=== PATIENT | male | born 1955 ===

== ENCOUNTER 2016-07-29 21:58 | Emergency (ER) | payer MEDICAID ==
[2016-07-29 21:59] VITALS: BMI 29.0
[2016-07-29 22:31] VITALS: BP 139/90; PULSE 98; RESP 16; TEMP 98.4; O2SAT 100
[2016-07-30] LABS: BASO # 0.1 K/uL (0.0-0.2); BASO % 1.1 % (0.0-2.0); EOS # 0.3 K/uL (0.0-0.7); EOS % 2.6 % (0.0-4.0); LYMPH # 3.4 K/uL (1.0-4.3); LYMPH % 29.4 % (20.0-40.0); MEAN CELL VOLUME 87.1 fl (80.0-94.0); MEAN CORPUSCULAR HGB CONC 33.3 g/dL (33.0-37.0); MEAN PLATELET VOLUME 9.1 fl (7.2-11.7); MONO # 0.8 K/uL (0.0-0.8); MONO % 7.3 % (0.0-10.0); NEUT # 6.9 K/uL (1.8-7.0); NEUT % 59.6 % (50.0-75.0); NRBC % 0.1 % (0.0-0.0); RED CELL DISTRIBUTION WIDTH 13.4 % (11.5-14.5); WHITE BLOOD COUNT 11.6 K/uL (4.8-10.8)
[2016-07-30 00:14] LABS: ALB/GLOB RATIO 1.5 (1.0-2.1); ALKALINE PHOSPHATASE 97 U/L (38-126); ALT/SGPT 41 U/L (21-72); AST/SGOT 28 U/L (17-59); BILIRUBIN,TOTAL 0.5 mg/dl (0.2-1.3); BLOOD UREA NITROGEN 18 mg/dl (9-20); CALCIUM 9.9 mg/dL (8.4-10.2); CARBON DIOXIDE 25 mmol/L (22-30); CHLORIDE 103 mmol/L (98-107); GFR AFRICAN-AMERICAN > 60; GLUCOSE,RANDOM 112 mg/dL (75-110); POTASSIUM 3.8 MMOL/L (3.6-5.0); SODIUM 141 mmol/l (132-148); TOTAL PROTEIN 8.4 G/DL (6.3-8.2)
--- NOTE | 2016-07-30 00:56 | US ---
EXAM: US Duplex Left Lower Extremity Veins CLINICAL HISTORY: 61 years old, male; Pain; Leg, lower; Left; Additional info: Possible dvt TECHNIQUE: Real-time ultrasound scan of the veins of the left lower extremity with color Doppler flow, spectral waveform analysis and compression. COMPARISON: US - DUPLEX LOWER EXTRM VEIN BILAT 04/27/2015 1:41:01 PM FINDINGS: Deep veins: Normal color and spectral Doppler flow. Normal compressibility. No deep vein thrombosis from common femoral to popliteal vein. Superficial veins: No thrombosis. Soft tissues: No popliteal cyst. IMPRESSION: 1. No evidence of DVT within LEFT lower extremity. 2. Incidental/non-acute findings are described above.
--- NOTE | 2016-07-30 01:07 | ED PDOC ---
Lower Extremity Pain/Injury Time Seen by Provider: 07/29/16 23:27 Chief Complaint (Nursing): Lower Extremity Problem/Injury Chief Complaint (Provider): LLE pain History Per: Patient History/Exam Limitations: no limitations Onset/Duration Of Symptoms: Days (1 week ) Current Symptoms Are (Timing): Still Present Additional Complaint(s): 61yo male with PMHx including diabetes, schizoaffective disorder, chronic back pain, spinal stenosis, and erectile dysfunction presents to the ED with c/o LLE pain x 1 week. Patient reports left foot pain worse when ambulating. Denies fever, redness to foot, calf pain, chest pain, or shortness of breath. Patient taking percocet with no relief. Past Medical History Reviewed: Historical Data, Nursing Documentation, Vital Signs Vital Signs: Last Vital Signs Temp 98.4 F 07/29/16 22:26 Pulse 98 H 07/29/16 22:26 Resp 16 07/29/16 22:26 BP 139/90 07/29/16 22:26 Pulse Ox 100 07/29/16 22:26 - Medical History PMH: Asthma (LAST ATTACK 02/04/2015), Diabetes, Deep Vein Thrombosis (To the RLE , not on blood thinners), HTN (Non complaint with medication), Hypercholesterolemia, Chronic Pain (back ) Denies: Depression, Chronic Kidney Disease Other PMH: schizoaffective disorder, spinal stenosis, erectile dysfunction - Surgical History Surgical History: Appendectomy Other surgeries: penile implant - Family History Family History: States: No Known Family Hx - Social History Current smoker - smoking cessation education provided: No Alcohol: None Drugs: Denies - Home Medications Home Medications: Ambulatory Orders Medication Instructions Recorded Acetaminophen/Oxycodone Hydr 1 tab PO Q4 09/06/13 [Percocet 325 mg-5 mg] Amlodipine Besylate/Benazepr 1 cap PO DAILY 09/06/13 [Lotrel 10 mg-20 mg] MetFORMIN [glucoPHAGE] 1,000 mg PO DAILY 09/06/13 Metoprolol Succinate [Metoprolol 1 tab PO DAILY 09/06/13 Succinate] Oxycodone HCl/Acetaminophen 1 tab PO Q6H PRN #15 tab 10/26/14 [Percocet 325 mg-5 mg] Ibuprofen [Motrin] 600 mg PO Q6H PRN #20 tab 10/26/15 MetFORMIN [glucoPHAGE] 1,000 mg PO DAILY #14 tab 10/26/15 Nystatin [Mycostatin Cream] 100,000 unit TP TID #1 tube 01/20/16 Gabapentin [Neurontin] 300 mg PO TID #25 cap 07/30/16 - Allergies Allergies/Adverse Reactions: Allergies Allergy/AdvReac Type Severity Reaction Status Date / Time No Known Allergies Allergy Verified 07/29/16 22:26 Review of Systems ROS Statement: Except As Marked, All Systems Reviewed And Found Negative Constitutional: Negative for: Fever Cardiovascular: Negative for: Chest Pain Respiratory: Negative for: Shortness of Breath Musculoskeletal: Positive for: Foot Pain (left ), Other (no calf pain ) Skin: Positive for: Other (no redness to left foot ) Physical Exam - Reviewed Nursing Documentation Reviewed: Yes Vital Signs Reviewed: Yes - Physical Exam Appears: Positive for: Well, No Acute Distress Head Exam: Positive for: ATRAUMATIC, NORMAL INSPECTION, NORMOCEPHALIC Skin: Positive for: Normal Color, Warm, Dry Eye Exam: Positive for: Normal appearance, EOMI, PERRL ENT: Positive for: Normal ENT Inspection Neck: Positive for: Normal, Painless ROM, Supple Cardiovascular/Chest: Positive for: Regular Rate, Rhythm. Negative for: Murmur , Tachycardia Respiratory: Positive for: Normal Breath Sounds. Negative for: Wheezing, Respiratory Distress Gastrointestinal/Abdominal: Positive for: Normal Exam, Soft. Negative for: Tenderness Back: Positive for: Normal Inspection. Negative for: L CVA Tenderness, R CVA Tenderness Extremity: Positive for: Normal ROM, Tenderness (mildly tender dorsum of left foot ), Swelling (trace edema to left foot ). Negative for: Deformity Neurologic/Psych: Positive for: Alert, Oriented. Negative for: Motor/Sensory Deficits - Laboratory Results Result Diagrams: 07/29/16 23:56 07/29/16 23:56 - ECG O2 Sat by Pulse Oximetry: 100 Pulse Ox Interpretation: Normal (RA) Medical Decision Making Medical Decision Makin: Impression: 61yo male w/ left foot pain in setting of diabetic disease Plan: CMP, CBC, d-dimer XR left foot accucheck US duplex LLE IVF Reassess 0056: US duplex LLE impression: 1. No evidence of DVT within LEFT lower extremity. 0210: XR left foot shows no acute disease. Labs reviewed, no clinically significant abnormalities. Patient was evaluated by podiatry resident who feels patient has vasculopathic and neuropathic pain. Patient can be discharged home and will f/u w/ pain management doctor and podiatry clinic. Dx: neuropathy stable Scribe Attestation: Documented by Jay Florez acting as a scribe for Joe Briones MD. Provider Scribe Attestation: All medical record entries made by the Scribe were at my direction and personally dictated by me. I have reviewed the chart and agree that the record accurately reflects my personal performance of the history, physical exam, medical decision making, and the department course for this patient. I have also personally directed, reviewed, and agree with the discharge instructions and disposition. Disposition - Clinical Impression Clinical Impression: Neuropathy - Patient ED Disposition Is Patient to be Admitted: No Counseled Patient/Family Regarding: Studies Performed, Diagnosis, Need For Followup - Disposition Referrals: Podiatry Clinic [Outside] Disposition: Routine/Home Disposition Time: 02:10 Condition: STABLE Additional Instructions: Please follow up with your body technician/painter in 2-3 days Prescriptions: Gabapentin [Neurontin] 300 mg PO TID #25 cap Instructions: Peripheral Neuropathy (ED)
--- NOTE | 2016-07-30 01:54 | CP.PCM.CON ---
History of Present Illness - History of Present Illness History of Present Illness: 61 year old male sent by PMD for evaluation of potential DVT on left foot as source for left foot and leg pain. 3 day of intermittent intense left foot pain , graded "9/10" localized to the top of the left foot. Pt reports pain is exacerbated by prolonged periods of standing. Pt denies recent inciting events. Pt sees a pain management physician for his long history of L4,L5,S1 disc herniation and spinal stenosis, and peripheral neuropathy. PMH: Diabetes 2 w/ neuropathy, HTN, Herniated discs, PSH: Appendectomy, Penile prosthesis, Partial thyroidectomy All: NKDA Social history: 03/12papck a day smoker witha 33 year long smoking history, quit 18 years ago. Denies alcohol use, History of cocaine and marijuana use 25+ years ago Meds: Percocet 10mg , Metformin 1000mg, Glipizide 2mg, Insulin, Past Patient History - Infectious Disease Hx of Infectious Diseases: None - Tetanus Immunizations Tetanus Immunization: Unknown - Past Medical History & Family History Past Medical History?: Yes - Past Social History Alcohol: None Drugs: Denies - CARDIAC Hx Hypercholesterolemia: Yes Hx Hypertension: Yes (Non complaint with medication) - PULMONARY Hx Asthma: Yes (LAST ATTACK 02/04/2015) - NEUROLOGICAL Hx Neurological Disorder: No - HEENT Hx HEENT Problems: No - RENAL Hx Chronic Kidney Disease: No - ENDOCRINE/METABOLIC Hx Endocrine Disorders: Yes Hx Diabetes Mellitus Type 2: Yes - HEMATOLOGICAL/ONCOLOGICAL Hx Blood Disorders: No - INTEGUMENTARY Hx Dermatological Problems: No - MUSCULOSKELETAL/RHEUMATOLOGICAL Hx Musculoskeletal Disorders: No - GASTROINTESTINAL Hx Gastrointestinal Disorders: No - GENITOURINARY/GYNECOLOGICAL Hx Genitourinary Disorders: No - PSYCHIATRIC Hx Depression: No - SURGICAL HISTORY Hx Appendectomy: Yes - ANESTHESIA Hx Anesthesia: Yes Hx Anesthesia Reactions: No Hx Malignant Hyperthermia: No Meds Home Medications: Home Medication List Medication Instructions Recorded Confirmed Type Gabapentin [Neurontin] 300 mg PO TID #25 cap 07/30/16 Rx Allergies/Adverse Reactions: Allergies Allergy/AdvReac Type Severity Reaction Status Date / Time No Known Allergies Allergy Verified 07/29/16 22:26 Physical Exam - Constitutional Appears: Well, Non-toxic, No Acute Distress - Extremities Exam Additional comments: Lower extremity focused. VASC: DP and PT pulses weakly palpable, 1/4. Left calf tenderness upon compression. Minor dorsal foot erythema absent swelling. Digits well perfused. DERM: Plantar acral skin shows xerosis. No hyperkeratotic lesions.No open wounds , lesion, or macerations bilaterally. Left leg shows diffuse patches of darkened xerotic skin. Nails are short, though dystrophic. NEURO: Protective sensation grossly diminished. (+) Tinnel signs along course of intermediate dorsal cutaneous nerve. - Neurological Exam Neurological exam: Alert, Oriented x3 - Psychiatric Exam Psychiatric exam: Normal Affect, Normal Mood Results - Vital Signs Recent Vital Signs: Last Vital Signs Temp 98.4 F 07/29/16 22:26 Pulse 98 H 07/29/16 22:26 Resp 16 07/29/16 22:26 BP 139/90 07/29/16 22:26 Pulse Ox 100 07/30/16 01:14 - Labs Result Diagrams: 07/29/16 23:56 07/29/16 23:56 Labs: Laboratory Results - last 24 hr 07/29/16 07/29/16 23:56 23:56 WBC 11.6 H D RBC 4.83 Hgb 14.0 Hct 42.0 MCV 87.1 MCH 29.0 MCHC 33.3 RDW 13.4 Plt Count 216 MPV 9.1 Neut % (Auto) 59.6 Lymph % (Auto) 29.4 [place] % (Auto) 7.3 Eos % (Auto) 2.6 Baso % (Auto) 1.1 Neut # 6.9 Lymph # 3.4 [place] # 0.8 Eos # 0.3 Baso # 0.1 Sodium 141 Potassium 3.8 Chloride 103 Carbon Dioxide 25 Anion Gap 17 BUN 18 Creatinine 0.9 Est GFR ( Amer) > 60 Est GFR (Non-Af Amer) > 60 Random Glucose 112 H Calcium 9.9 Total Bilirubin 0.5 AST 28 ALT 41 Alkaline Phosphatase 97 Total Protein 8.4 H Albumin 5.0 Globulin 3.4 Albumin/Globulin Ratio 1.5 Assessment & Plan - Assessment and Plan (Free Text) Assessment: 61 year old male with left foot dorsal intractable pain, secondary to neuropathy & underlying vasculopathy Plan: Pt was Seen & evaluated. Charts, labs, and vitals reviewed. Discussed with Dr. Plaza who endorsed the following plan. Venous Duplex negative for DVT X-rays: unremarkable fro acute trauma. Dorsal prominence of navicular head noted. No soft tissue swelling noted. Unremarkable Recommended return to pain management for optimization and addition of Gabapentin in pain control regimen. F/u in podiatry clinic prn - Date & Time Date: 07/30/16 Time: 02:00
--- NOTE | 2016-07-30 17:20 | RAD ---
PROCEDURE: Left Foot Radiographs. HISTORY: Pain. No history of recent/ related trauma provided COMPARISON: None. FINDINGS: BONES: No acute fracture. Small plantar calcaneal spur. JOINTS: Normal. SOFT TISSUES: Normal. OTHER FINDINGS: None. IMPRESSION: No acute findings related to/accounting for the clinical presentation.
--- NOTE | 2016-07-30 17:21 | RAD ---
PROCEDURE: Right Foot Radiographs. HISTORY: contralateral comparative film COMPARISON: None. FINDINGS: BONES: No acute fracture. Small plantar calcaneal spur. JOINTS: Minor hallux valgus deformity. SOFT TISSUES: Normal. OTHER FINDINGS: Vascular calcifications similar to those seen on the contralateral side. IMPRESSION: No acute findings related to/accounting for the clinical presentation.
== END 2016-07-30 02:20 | disposition home or self-care (01) ==
LOC: H.ER 21:58
DX: M79.672 Pain in left foot (principal); G62.9 Polyneuropathy, unspecified; E78.00 Pure hypercholesterolemia, unspecified; Z79.84 Long term (current) use of oral hypoglycemic drugs; Z86.718 Personal history of other venous thrombosis and embolism; J45.909 Unspecified asthma, uncomplicated; E11.9 Type 2 diabetes mellitus without complications

== ENCOUNTER 2016-10-02 12:03 | Emergency (ER) | payer MEDICAID ==
[2016-10-02 12:03] VITALS: BMI 29.0
[2016-10-02 12:36] VITALS: BP 157/97; PULSE 107; RESP 16; TEMP 97; O2SAT 100
--- NOTE | 2016-10-02 12:59 | ED PDOC ---
Lower Extremity Pain/Injury Time Seen by Provider: 10/02/16 12:53 Chief Complaint (Nursing): Lower Extremity Problem/Injury Chief Complaint (Provider): Left heel pain History Per: Patient History/Exam Limitations: no limitations Onset/Duration Of Symptoms: Days (x2) Current Symptoms Are (Timing): Still Present Additional Complaint(s): Michael Zaidi is a 61 year old male with previous medical history of diabetes, hypertension, chronic back pain and hypothyroidism who presents to the emergency department with a complaint of left heel pain ongoing for 2 days. Denied any injury/trauma or further complaints. Patient stated he took Percocet , prescribed from his pain management doctor, but felt no improvement. Patient has had intermittent heel pain for several months but states the pain got worse over the past couple of days. PMD: Derrick Ellis Jr., MD Past Medical History Reviewed: Historical Data, Nursing Documentation, Vital Signs Vital Signs: Last Vital Signs Temp 97.0 F L 10/02/16 12:32 Pulse 107 H 10/02/16 12:32 Resp 16 10/02/16 12:32 BP 157/97 H 10/02/16 12:32 Pulse Ox 100 10/02/16 12:32 - Medical History PMH: Asthma (bronchial asthma, LAST ATTACK 02/04/2015), Diabetes, Deep Vein Thrombosis (To the RLE, not on blood thinners), HTN (noncompliant with meds), Hypercholesterolemia, Hypothyroidism, Chronic Pain (back ) - Surgical History Surgical History: Appendectomy Other surgeries: Left partial thyroidectomy; Penis enlargement implant - Family History Family History: States: No Known Family Hx - Living Arrangements Living Arrangements: With Family - Social History Current smoker - smoking cessation education provided: Yes Alcohol: None Drugs: Denies - Home Medications Home Medications: Ambulatory Orders Medication Instructions Recorded Acetaminophen/Oxycodone Hydr 1 tab PO Q4 09/06/13 [Percocet 325 mg-5 mg] Amlodipine Besylate/Benazepr 1 cap PO DAILY 09/06/13 [Lotrel 10 mg-20 mg] MetFORMIN [glucoPHAGE] 1,000 mg PO DAILY 09/06/13 Metoprolol Succinate [Metoprolol 1 tab PO DAILY 09/06/13 Succinate] Oxycodone HCl/Acetaminophen 1 tab PO Q6H PRN #15 tab 10/26/14 [Percocet 325 mg-5 mg] Ibuprofen [Motrin] 600 mg PO Q6H PRN #20 tab 10/26/15 MetFORMIN [glucoPHAGE] 1,000 mg PO DAILY #14 tab 10/26/15 Nystatin [Mycostatin Cream] 100,000 unit TP TID #1 tube 01/20/16 Gabapentin [Neurontin] 300 mg PO TID #25 cap 07/30/16 Naproxen [Naprosyn] 500 mg PO BID #20 tab 10/02/16 - Allergies Allergies/Adverse Reactions: Allergies Allergy/AdvReac Type Severity Reaction Status Date / Time No Known Allergies Allergy Verified 10/02/16 12:32 Wells Criteria for PE - Wells Criteria for Pulmonary Embolism Clinical Signs and Symptoms of DVT: No P.E is #1 Diagnosis, or Equally Likely: No Heart Rate >100: No Immobilization at least 3 days;Surgery previous 4 weeks: No Previous, objectively diagnosed PE or DVT: No Hemoptysis: No Malignancy w/treatment within 6 months, or palliative: No Total Score: 0 Review of Systems ROS Statement: Except As Marked, All Systems Reviewed And Found Negative Musculoskeletal: Positive for: Foot Pain (left heel pain, denies trauma or injury) Physical Exam - Reviewed Nursing Documentation Reviewed: Yes Vital Signs Reviewed: Yes - Physical Exam Appears: Positive for: Well, Non-toxic, No Acute Distress Skin: Positive for: Normal Color. Negative for: Rash Extremity: Positive for: Tenderness (point tenderness to left heel), Swelling ( to left heel region), Other (no erythema or warmth to left heel region) Neurologic/Psych: Positive for: Alert, Oriented - ECG O2 Sat by Pulse Oximetry: 100 (RA) Pulse Ox Interpretation: Normal - Other Rad Left foot x-ray X-Ray: Interpreted by Me, Viewed By Me X-Ray Interpretation: no fx, no dis, heel spur Medical Decision Making Medical Decision Making: Initial Impression: Left heel pain Initial Plan: * Xray foot (left) * Motrin 600mg PO Patient aware of x-ray results. Patient states motrin helped the pain. See procedure note. Crutches given. Patient was referred to podiatry clinic in 2- 3 days. Scribe Attestation: Documented by Bernadette Rhodes, acting as a scribe for Nadiya Hobson PA-C. Provider Scribe Attestation: All medical record entries made by the Scribe were at my direction and personally dictated by me. I have reviewed the chart and agree that the record accurately reflects my personal performance of the history, physical exam, medical decision making, and the department course for this patient. I have also personally directed, reviewed, and agree with the discharge instructions and disposition. Procedures - Splinting Location: Left foot Pre-Made Type: ally wrap, ortho shoe Pre-Proc Neuro Vasc Exam: normal Post-Proc Neuro Vasc Exam: normal Disposition - Clinical Impression Clinical Impression: Heel spur - Patient ED Disposition Is Patient to be Admitted: No Counseled Patient/Family Regarding: Studies Performed, Diagnosis, Need For Followup, Rx Given - Disposition Referrals: Podiatry Clinic [Outside] Disposition: Routine/Home Disposition Time: 14:15 Condition: STABLE Additional Instructions: Ice and rest the affected area. Take prescription meds as directed as needed for pain. Follow-up in one to 2 days with podiatry clinic. Prescriptions: Naproxen [Naprosyn] 500 mg PO BID #20 tab Instructions: Heel Spur (ED), Crutch Instructions (ED) Forms: [employer] ([place]izean)
--- NOTE | 2016-10-02 14:07 | RAD ---
PROCEDURE: Left Foot Radiographs. HISTORY: heel pain COMPARISON: None. FINDINGS: BONES: No acute fracture. Plantar calcaneal spur noted. JOINTS: Normal. SOFT TISSUES: Vascular calcification. OTHER FINDINGS: None. IMPRESSION: Plantar calcaneal spur. No acute fracture.
== END 2016-10-02 15:03 | disposition home or self-care (01) ==
LOC: H.ER 12:03
DX: M77.32 Calcaneal spur, left foot (principal)

== ENCOUNTER 2017-02-16 10:32 | Emergency (ER) | payer MEDICAID ==
[2017-02-16 10:32] VITALS: BMI 26.3
[2017-02-16 10:41] VITALS: BP 149/80; PULSE 78; RESP 18; TEMP 97; O2SAT 98
== END 2017-02-16 11:20 | disposition left against medical advice (07) ==
LOC: H.ER 10:32
DX: Z02.89 Encounter for other administrative examinations (principal)

== ENCOUNTER 2017-09-22 18:04 | Inpatient (IN) | payer MEDICAID ==
[2017-09-22 18:04] VITALS: BMI 27.9
[2017-09-22] MEDS ORDERED: Piperacillin/Tazobact 3.375 GM in Sodium Chloride 0.9% 100 ML IV ONE (18:57)
[2017-09-22 19:15] LABS: VENOUS BLOOD GAS BASE EXCESS 2.8 mmol/L (0.0-2.0); VENOUS BLOOD GAS PCO2 40 mmHg (40-60); VENOUS BLOOD GAS PO2 30 mm/Hg (30-55); VENOUS BLOOD PH 7.44 (7.32-7.43)
[2017-09-22 19:16] LABS: BASO # 0.1 K/uL (0.0-0.2); BASO % 0.6 % (0.0-2.0); EOS # 0.1 K/uL (0.0-0.7); EOS % 0.3 % (0.0-4.0); HEMOGLOBIN 13.4 g/dL (12.0-18.0); LYMPH # 1.9 K/uL (1.0-4.3); LYMPH % 10.4 % (20.0-40.0); MEAN CORPUSCULAR HEMOGLOBIN 29.9 pg (27.0-31.0); MEAN CORPUSCULAR HGB CONC 34.3 g/dL (33.0-37.0); MEAN PLATELET VOLUME 9.8 fl (7.2-11.7); MONO # 1.8 K/uL (0.0-0.8); MONO % 9.7 % (0.0-10.0); NEUT # 14.7 K/uL (1.8-7.0); RBC 4.5 Mil/uL (4.40-5.90); RED CELL DISTRIBUTION WIDTH 13.4 % (11.5-14.5); WHITE BLOOD COUNT 18.6 K/uL (4.8-10.8)
[2017-09-22 19:29] LABS: ALB/GLOB RATIO 1.5 (1.0-2.1); ALBUMIN 4.5 g/dL (3.5-5.0); ALT/SGPT 42 U/L (21-72); AST/SGOT 27 U/L (17-59); BLOOD UREA NITROGEN 11 mg/dl (9-20); CALCIUM 9.3 mg/dL (8.4-10.2); GFR NON-AFRICAN AMERICAN > 60
[2017-09-22] MEDS ORDERED: Piperacillin/Tazobact 3.375 gm Inj IVPB ONE (19:33)
[2017-09-22 19:36] LABS: INR 1.1 (0.9-1.2); PARTIAL THROMBOPLASTIN TIME 29.3 Seconds (25.6-37.1); PROTHROMBIN TIME 12.2 Seconds (9.8-13.1)
--- NOTE | 2017-09-22 19:39 | ED PDOC ---
HPI: Male Pain Time Seen by Provider: 09/22/17 18:47 Chief Complaint (Nursing): Male Genitourinary Chief Complaint (Provider): Fever, back pain, dysuria History Per: Patient History/Exam Limitations: no limitations Onset/Duration Of Symptoms: Days Current Symptoms Are (Timing): Still Present Quality Of Discomfort: Dull (Back pain ) Additional Complaint(s): 62 yo male with HTN, DM and chronic back pain presents with back pain, fever and dysuria. Pt states the urinary frequency and dysuria began yesterday. PT takes percocet for back pain and states he thought back pain was related to that. Pt states his last percocet was at 3pm. Pt denies N/V/D Past Medical History Vital Signs: Last Vital Signs Temp 103 F H 09/22/17 18:30 Pulse 118 H 09/22/17 18:30 Resp 18 09/22/17 18:30 BP 130/79 09/22/17 18:30 Pulse Ox 99 09/22/17 18:30 - Medical History PMH: Anxiety, Arthritis, Asthma, Depression, Diabetes, Deep Vein Thrombosis (To the RLE, not on blood thinners), HTN, Hypercholesterolemia, Hypothyroidism, Kidney Stones, Chronic Kidney Disease, Chronic Pain (back ) - Surgical History Surgical History: Appendectomy, Endoscopy - Family History Family History: States: Unknown Family Hx - Home Medications Home Medications: Ambulatory Orders Medication Instructions Recorded Amlodipine Besylate/Benazepr 1 cap PO DAILY 09/06/13 [Lotrel 10 mg-20 mg] MetFORMIN [glucoPHAGE] 1,000 mg PO DAILY 09/06/13 Metoprolol Succinate [Metoprolol 1 tab PO DAILY 09/06/13 Succinate] Oxycodone HCl/Acetaminophen 1 tab PO Q6H PRN #15 tab 10/26/14 [Percocet 325 mg-5 mg] Gabapentin [Neurontin] 300 mg PO TID #25 cap 07/30/16 hydrALAZINE [Apresoline] 10 mg PO DAILY 02/26/17 traZODone [Desyrel] 100 mg PO DAILY 02/26/17 - Allergies Allergies/Adverse Reactions: Allergies Allergy/AdvReac Type Severity Reaction Status Date / Time No Known Allergies Allergy Verified 10/02/16 12:32 Physical Exam - Reviewed Nursing Documentation Reviewed: Yes Vital Signs Reviewed: Yes - Physical Exam Appears: Positive for: Well, Non-toxic, No Acute Distress Head Exam: Positive for: ATRAUMATIC, NORMAL INSPECTION, NORMOCEPHALIC Skin: Positive for: Normal Color, Warm, DRY Eye Exam: Positive for: Normal appearance ENT: Positive for: Normal ENT Inspection Neck: Positive for: Normal, Painless ROM Cardiovascular/Chest: Positive for: Regular Rate, Rhythm Respiratory: Positive for: Normal Breath Sounds. Negative for: Accessory Muscle Use Gastrointestinal/Abdominal: Positive for: Normal Exam, Soft. Negative for: Tenderness Male Genital Exam: Positive for: normal genitalia Back: Positive for: Normal Inspection Extremity: Positive for: Normal ROM Neurologic/Psych: Positive for: Alert, Oriented - Laboratory Results Result Diagrams: 09/22/17 19:05 09/22/17 19:05 - ECG O2 Sat by Pulse Oximetry: 99 Medical Decision Making Medical Decision Making: Elevated WBC Lactate normal. Discussed with Dr. Cotton for admission. Disposition - Clinical Impression Clinical Impression: Pyelonephritis - Patient ED Disposition Is Patient to be Admitted: Yes - Disposition Disposition Time: 20:01 Condition: STABLE Forms: [employer] (Malagasy)
[2017-09-22 20:09] LABS: URINE BACTERIA RARE (<OCC); URINE BILIRUBIN NEGATIVE (NEGATIVE); URINE BLOOD SMALL (NEGATIVE); URINE CLARITY SLIGHTY-CLOUDY (Clear); URINE COLOR STRAW (YELLOW); URINE GLUCOSE (UA) NEG (Normal); URINE LEUKOCYTE ESTERASE LARGE Leu/uL (Negative); URINE PROTEIN NEGATIVE (NEGATIVE); URINE UROBILINOGEN 0.2-1.0 mg/dL (0.2-1.0)
[2017-09-22] MEDS ORDERED: Oxycodone/Acetaminophen 5/325 mg Tab PO PRN (23:49)
[2017-09-23 06:42] LABS: BASO # 0.1 K/uL (0.0-0.2); BASO % 0.3 % (0.0-2.0); HEMOGLOBIN 13.2 g/dL (12.0-18.0); LYMPH # 1.7 K/uL (1.0-4.3); LYMPH % 8.3 % (20.0-40.0); MEAN CELL VOLUME 87.9 fl (80.0-94.0); MEAN CORPUSCULAR HEMOGLOBIN 29.9 pg (27.0-31.0); MEAN PLATELET VOLUME 9.9 fl (7.2-11.7); MONO # 2.3 K/uL (0.0-0.8); MONO % 10.9 % (0.0-10.0); NEUT # 16.9 K/uL (1.8-7.0); NEUT % 80.5 % (50.0-75.0); PLATELET COUNT 169 K/uL (130-400); RBC 4.42 Mil/uL (4.40-5.90); RED CELL DISTRIBUTION WIDTH 13.3 % (11.5-14.5)
[2017-09-23 07:31] LABS: ALB/GLOB RATIO 1.4 (1.0-2.1); ALBUMIN 3.9 g/dL (3.5-5.0); ALT/SGPT 46 U/L (21-72); AST/SGOT 33 U/L (17-59); BLOOD UREA NITROGEN 10 mg/dl (9-20); CALCIUM 9.3 mg/dL (8.4-10.2); GFR NON-AFRICAN AMERICAN > 60; HDL CHOLESTEROL 38 MG/DL (30-70)
[2017-09-23 07:33] LABS: LDL CHOLESTEROL 55 mg/dL (0-129)
[2017-09-23 07:35] LABS: T4 7.27 ug/dl (5.5-11.0)
[2017-09-23] MEDS: cefTRIAXone 2 GM in Sodium Chloride 0.9% 100 ML IVPB SCH (08:18)
[2017-09-23] MEDS: GlipiZIDE 5 mg SR Tab PO SCH (08:19)
[2017-09-23] MEDS: Metoprolol Succinate 100 mg XL Tab PO SCH (08:19)
[2017-09-23] MEDS ORDERED: METOPROLOL SUCCINATE PO SCH (09:00)
[2017-09-23] MEDS ORDERED: BENAZEPRIL PO SCH (09:00)
[2017-09-23] MEDS ORDERED: GLIMEPIRIDE 2 MG PO SCH (09:00)
[2017-09-23] MEDS ORDERED: AMLODIPINE BESYLATE PO SCH (09:00)
[2017-09-23 10:28] LABS: BANDS 4 % (0-2); LYMPHOCYTE 9 % (20-50); MONOCYTE 9 % (0-10); NEUTROPHIL 77 % (42-75); PLATELET ESTIMATE NORMAL (NORMAL); REACTIVE LYMPHOCYTES 1 % (0-0); TOTAL CELLS COUNTED 100
--- NOTE | 2017-09-23 11:14 | RAD ---
Date of service: 09/22/2017 HISTORY: Sepsis Patient COMPARISON: 04/27/2015. FINDINGS: LUNGS: No active pulmonary disease. PLEURA: No significant pleural effusion identified, no pneumothorax apparent. CARDIOVASCULAR: No radiographic findings to suggest acute or significant cardiovascular disease. OSSEOUS STRUCTURES: No significant abnormalities. VISUALIZED UPPER ABDOMEN: Normal. OTHER FINDINGS: None. IMPRESSION: No active disease. No significant interval change compared to the prior examination(s).
--- NOTE | 2017-09-23 15:31 | US ---
Date of service: 09/23/2017 PROCEDURE: Ultrasound of the Kidneys HISTORY: pyelonephritis COMPARISON: None available. TECHNIQUE: Sonogram of the kidneys. FINDINGS: RIGHT KIDNEY: Measures: 12.1 x 5.9 x 5.8 cm. Normal in size, contour and echogenicity. No stone, solid mass lesion or hydronephrosis visualized. A small right upper renal pole cyst measuring 7 x 7 x 6 mm in size is noted. LEFT KIDNEY: Measures: 12.8 x 5.1 x 6.1 cm. No stone, or hydronephrosis visualized. There is slight interval change appreciated in a partially exophytic left renal complex appearing cyst. Within the exophytic cystic compartment there may be a few small calcifications within it. Previously a left more intra renal parenchymal benign-appearing cysts with suggested. The findings are indeterminate consider triple phase contrast enhanced CT of the kidneys for further evaluation. No hydronephrosis noted. OTHER FINDINGS: None. IMPRESSION: slight interval change appreciated in a partially exophytic left renal complex appearing cyst. Within the exophytic cystic compartment there may be a few small calcifications within it. Previously a left more intra renal parenchymal benign-appearing cysts with suggested. The findings are indeterminate consider triple phase contrast enhanced CT of the kidneys for further evaluation. No hydronephrosis noted.
--- NOTE | 2017-09-23 15:39 | CP.PCM.HP ---
History of Present Illness - History of Present Illness History of Present Illness: 62 y/o male with PMHx of HTN, DM type 2, Chronic back pain, Penile implant presents to Ed complaining of left sided flank pain, associated with dysuria, vesical tenesmus, and fevers for one day. Patient reports that this is the first time he has left flank pain, associated with urinary symptoms, but reports a h/o kidney stones years ago. Denies chills, N/V, Cp, SOB, hematuria. Reports pain involving multiple joints bilaterally. States he has poor adherence to diabetic diet, and medications. Present on Admission - Present on Admission Any Indicators Present on Admission: Yes History of DVT/PE: Yes History of Uncontrolled Diabetes: No Urinary Catheter: No Decubitus Ulcer Present: No Review of Systems - Constitutional Constitutional: Fever - EENT Eyes: Other (no) Nose/Mouth/Throat: Other (no) - Cardiovascular Cardiovascular: Other (no) - Respiratory Respiratory: Other (no) - Gastrointestinal Gastrointestinal: Other (no) - Reproductive: Male Reproductive:Male: Sexual Dysfunction, Penile Implant - Musculoskeletal Musculoskeletal: Arthralgias - Integumentary Integumentary: Skin Ulcer (L foot) - Neurological Neurological: Other (no) - Psychiatric Psychiatric: Anxiety, Depression - Endocrine Endocrine: Other (no) - Hematologic/Lymphatic Hematologic: Other (no) Past Patient History - Infectious Disease Hx of Infectious Diseases: None - Tetanus Immunizations Tetanus Immunization: Unknown - Past Medical History & Family History Past Medical History?: Yes - Past Social History Smoking Status: Never Smoked Home Situation {Lives}: With Family - CARDIAC Hx Cardiac Disorders: Yes Hx Hypercholesterolemia: Yes Hx Hypertension: Yes - PULMONARY Hx Asthma: Yes - NEUROLOGICAL Hx Neurological Disorder: No - HEENT Hx HEENT Problems: No - RENAL Hx Chronic Kidney Disease: Yes Hx Dialysis: No Hx Kidney Stones: Yes - ENDOCRINE/METABOLIC Hx Endocrine Disorders: Yes Hx Diabetes Mellitus Type 2: Yes Hx Hypothyroidism: Yes - HEMATOLOGICAL/ONCOLOGICAL Hx Blood Disorders: Yes Other/Comment: DVT R. lower ext - INTEGUMENTARY Hx Dermatological Problems: No - MUSCULOSKELETAL/RHEUMATOLOGICAL Hx Musculoskeletal Disorders: Yes Hx Arthritis: Yes Hx Falls: No - GASTROINTESTINAL Hx Gastrointestinal Disorders: Yes Hx Hemorrhoids: Yes - GENITOURINARY/GYNECOLOGICAL Hx Genitourinary Disorders: Yes Other/Comment: Erectile dysfunction. Penile implant/pump - PSYCHIATRIC Hx Psychophysiologic Disorder: Yes Hx Anxiety: Yes Hx Depression: Yes Hx Substance Use: No - SURGICAL HISTORY Hx Appendectomy: Yes Other/Comment: Penile sx. Epidural - ANESTHESIA Hx Anesthesia: Yes Hx Anesthesia Reactions: No Hx Malignant Hyperthermia: No Meds Allergies/Adverse Reactions: Allergies Allergy/AdvReac Type Severity Reaction Status Date / Time No Known Allergies Allergy Verified 09/22/17 20:45 Physical Exam - Constitutional Appears: Non-toxic, No Acute Distress - Head Exam Head Exam: ATRAUMATIC, NORMOCEPHALIC - Eye Exam Eye Exam: Normal appearance. absent: Conjunctival injection - ENT Exam ENT Exam: Mucous Membranes Moist - Respiratory Exam Respiratory Exam: Clear to Auscultation Bilateral, NORMAL BREATHING PATTERN. absent: Rales, Rhonchi, Wheezes, Respiratory Distress - Cardiovascular Exam Cardiovascular Exam: REGULAR RHYTHM, +S1, +S2 - GI/Abdominal Exam GI & Abdominal Exam: Normal Bowel Sounds, Soft. absent: Guarding, Rebound, Rigid, Tenderness - Extremities Exam Extremities exam: Positive for: normal inspection. Negative for: calf tenderness, pedal edema - Back Exam Back exam: CVA tenderness (L). absent: CVA tenderness (R) - Neurological Exam Neurological exam: Alert, Oriented x3 Additional comments: no focal motor/sensory deficit - Psychiatric Exam Psychiatric exam: Normal Affect - Skin Skin Exam: Dry, Intact, Normal Color, Warm Results - Vital Signs Recent Vital Signs: Last Vital Signs Temp 101.9 F H 09/23/17 15:20 Pulse 97 H 09/23/17 10:18 Resp 20 09/23/17 10:18 BP 125/81 09/23/17 08:31 Pulse Ox 97 09/23/17 10:18 - Labs Result Diagrams: 09/25/17 05:55 09/25/17 05:55 Labs: Laboratory Results - last 24 hr 09/22/17 09/22/17 09/22/17 19:03 19:05 19:05 WBC 18.6 H D RBC 4.50 Hgb 13.4 Hct 39.1 MCV 87.0 MCH 29.9 MCHC 34.3 RDW 13.4 Plt Count 181 MPV 9.8 Neut % (Auto) 79.0 H Lymph % (Auto) 10.4 L [place] % (Auto) 9.7 Eos % (Auto) 0.3 Baso % (Auto) 0.6 Neut # (Auto) 14.7 H Lymph # (Auto) 1.9 [place] # (Auto) 1.8 H Eos # (Auto) 0.1 Baso # (Auto) 0.1 Neutrophils % (Manual) Band Neutrophils % Lymphocytes % (Manual) Reactive Lymphs % Monocytes % (Manual) Platelet Estimate RBC Morphology PT INR APTT pO2 30 VBG pH 7.44 H VBG pCO2 40 VBG HCO3 26.2 VBG Total CO2 28.4 H VBG O2 Sat (Calc) 69.2 H VBG Base Excess 2.8 H VBG Potassium 3.8 Sodium 131.0 L 134 Chloride 96.0 L 96 L Glucose 174 H Lactate 1.4 FiO2 21.0 Potassium 4.0 Carbon Dioxide 25 Anion Gap 17 BUN 11 Creatinine 0.9 Est GFR ( Amer) > 60 Est GFR (Non-Af Amer) > 60 Random Glucose 168 H Hemoglobin A1c Calcium 9.3 Phosphorus 2.9 Magnesium 1.4 L Total Bilirubin 1.0 AST 27 ALT 42 Alkaline Phosphatase 97 Troponin I < 0.0120 Total Protein 7.5 Albumin 4.5 Globulin 3.0 Albumin/Globulin Ratio 1.5 Triglycerides Cholesterol LDL Cholesterol Direct HDL Cholesterol Thyroxine (T4) TSH 3rd Generation Venous Blood Potassium 3.8 Urine Color Urine Clarity Urine pH Ur Specific [place] Urine Protein Urine Glucose (UA) Urine Ketones Urine Blood Urine Nitrate Urine Bilirubin Urine Urobilinogen Ur Leukocyte Esterase Urine RBC (Auto) Urine Microscopic WBC Urine Bacteria 09/22/17 09/22/17 09/23/17 19:05 19:40 05:55 WBC 21.0 H RBC 4.42 Hgb 13.2 Hct 38.9 MCV 87.9 MCH 29.9 MCHC 34.0 RDW 13.3 Plt Count 169 MPV 9.9 Neut % (Auto) 80.5 H Lymph % (Auto) 8.3 L [place] % (Auto) 10.9 H Eos % (Auto) 0.0 Baso % (Auto) 0.3 Neut # (Auto) 16.9 H Lymph # (Auto) 1.7 [place] # (Auto) 2.3 H Eos # (Auto) 0.0 Baso # (Auto) 0.1 Neutrophils % (Manual) 77 H Band Neutrophils % 4 H Lymphocytes % (Manual) 9 L Reactive Lymphs % 1 H Monocytes % (Manual) 9 Platelet Estimate Normal RBC Morphology Normal PT 12.2 INR 1.1 APTT 29.3 pO2 VBG pH VBG pCO2 VBG HCO3 VBG Total CO2 VBG O2 Sat (Calc) VBG Base Excess VBG Potassium Sodium Chloride Glucose Lactate FiO2 Potassium Carbon Dioxide Anion Gap BUN Creatinine Est GFR ( Amer) Est GFR (Non-Af Amer) Random Glucose Hemoglobin A1c Calcium Phosphorus Magnesium Total Bilirubin AST ALT Alkaline Phosphatase Troponin I Total Protein Albumin Globulin Albumin/Globulin Ratio Triglycerides Cholesterol LDL Cholesterol Direct HDL Cholesterol Thyroxine (T4) TSH 3rd Generation Venous Blood Potassium Urine Color Straw Urine Clarity Slighty-cloudy Urine pH 7.0 Ur Specific [place] < 1.005 Urine Protein Negative Urine Glucose (UA) Neg Urine Ketones Negative Urine Blood Small Urine Nitrate Negative Urine Bilirubin Negative Urine Urobilinogen 0.2-1.0 Ur Leukocyte Esterase Large Urine RBC (Auto) 3 Urine Microscopic WBC 108 H Urine Bacteria Rare 09/23/17 09/23/17 05:55 05:55 WBC RBC Hgb Hct MCV MCH MCHC RDW Plt Count MPV Neut % (Auto) Lymph % (Auto) [place] % (Auto) Eos % (Auto) Baso % (Auto) Neut # (Auto) Lymph # (Auto) [place] # (Auto) Eos # (Auto) Baso # (Auto) Neutrophils % (Manual) Band Neutrophils % Lymphocytes % (Manual) Reactive Lymphs % Monocytes % (Manual) Platelet Estimate RBC Morphology PT INR APTT pO2 VBG pH VBG pCO2 VBG HCO3 VBG Total CO2 VBG O2 Sat (Calc) VBG Base Excess VBG Potassium Sodium 136 Chloride 99 Glucose Lactate FiO2 Potassium 4.1 Carbon Dioxide 25 Anion Gap 16 BUN 10 Creatinine 0.9 Est GFR ( Amer) > 60 Est GFR (Non-Af Amer) > 60 Random Glucose 172 H Hemoglobin A1c 8.0 H Calcium 9.3 Phosphorus Magnesium Total Bilirubin 1.3 AST 33 ALT 46 Alkaline Phosphatase 100 Troponin I Total Protein 6.8 Albumin 3.9 Globulin 2.9 Albumin/Globulin Ratio 1.4 Triglycerides 127 Cholesterol 139 LDL Cholesterol Direct 55 HDL Cholesterol 38 Thyroxine (T4) 7.27 TSH 3rd Generation 0.67 Venous Blood Potassium Urine Color Urine Clarity Urine pH Ur Specific [place] Urine Protein Urine Glucose (UA) Urine Ketones Urine Blood Urine Nitrate Urine Bilirubin Urine Urobilinogen Ur Leukocyte Esterase Urine RBC (Auto) Urine Microscopic WBC Urine Bacteria Assessment & Plan (1) Pyelonephritis Status: Acute (2) Left flank tenderness Status: Acute (3) History of penile implant Status: Chronic (4) DM type 2 (diabetes mellitus, type 2) Status: Chronic (5) Chronic back pain Status: Chronic - Assessment and Plan (Free Text) Plan: MedSurg unit c/w Merren c/w tylenol for fever c/w pain control with toradol, Percocet f/u urine culture f/u renal US will send for Ct scan with Renal protocol will consider Urology consult is needed check PSA, EDMAR w/reflex ab, RA c/w diabetic control with diet, metformin, and Glipizide HgbA1C 8.0 encourage to lose weight, and lifestyles modifications c/w BP control with home medications - Date & Time Date: 09/23/17 Time: 10:40
[2017-09-23] MEDS: Insulin Regular 100 units/ml SC SCH ×2 (17:35→21:53)
[2017-09-23] MEDS ORDERED: cefTRIAXone 2 GM in Sodium Chloride 0.9% 100 ML IVPB SCH (23:52)
[2017-09-24] MEDS: Piperacillin/Tazobact 3.375 GM in Sodium Chloride 0.9% 100 ML IVPB SCH ×2 (05:48→10:23)
[2017-09-24 06:33] LABS: HEMOGLOBIN 12.7 g/dL (12.0-18.0); MEAN CELL VOLUME 88.2 fl (80.0-94.0); MEAN CORPUSCULAR HEMOGLOBIN 30.3 pg (27.0-31.0); MEAN CORPUSCULAR HGB CONC 34.4 g/dL (33.0-37.0); RBC 4.19 Mil/uL (4.40-5.90); RED CELL DISTRIBUTION WIDTH 13.7 % (11.5-14.5); WHITE BLOOD COUNT 23.7 K/uL (4.8-10.8)
[2017-09-24 06:40] LABS: BLOOD UREA NITROGEN 10 mg/dl (9-20); CALCIUM 9.4 mg/dL (8.4-10.2); GFR NON-AFRICAN AMERICAN > 60
[2017-09-24] MEDS: Insulin Regular 100 units/ml SC SCH ×4 (09:08→22:55)
[2017-09-24] MEDS: GlipiZIDE 5 mg SR Tab PO SCH (09:09)
[2017-09-24] MEDS: cefTRIAXone 2 GM in Sodium Chloride 0.9% 100 ML IVPB SCH (09:10)
[2017-09-24] MEDS: Metoprolol Succinate 100 mg XL Tab PO SCH (09:10)
[2017-09-24] MEDS ORDERED: Meropenem 500 MG in Sodium Chloride 0.9% 100 ML IVPB SCH (12:15)
--- NOTE | 2017-09-24 15:31 | CARD ---
APPROVED REPORT Date of service: 09/22/2017 EKG Measurement Heart [id number] <Conclusion> Sinus tachycardia Otherwise normal ECG
--- NOTE | 2017-09-24 15:57 | CP.PCM.PN ---
Subjective - Date & Time of Evaluation Date of Evaluation: 09/24/17 Time of Evaluation: 13:30 - Subjective Subjective: F/U Pyelonephritis Objective - Vital Signs/Intake and Output Vital Signs (last 24 hours): Temp Pulse Resp BP Pulse Ox 98.3 F 93 H 20 114/74 95 09/24/17 11:55 09/24/17 09:10 09/24/17 09:08 09/24/17 09:10 09/24/17 09:08 - Medications Medications: Current Medications Acetaminophen (Tylenol 325mg Tab) 650 mg PO Q4 PRN PRN Reason: Fever >100.4 F Last Admin: 09/24/17 04:29 Dose: 650 mg Alprazolam (Xanax) 1 mg PO HS PRN PRN Reason: Insomnia Last Admin: 09/23/17 22:44 Dose: 1 mg Amlodipine Besylate (Norvasc) 10 mg PO DAILY [facility] Last Admin: 09/24/17 09:09 Dose: 10 mg Glipizide (Glucotrol Xl) 5 mg PO BRK [facility] Last Admin: 09/24/17 09:09 Dose: 5 mg Meropenem 500 mg/ Sodium (Chloride) 100 mls @ 100 mls/hr IVPB Q8 CATALINO PRN Reason: Protocol Last Admin: 09/24/17 14:32 Dose: 100 mls/hr Insulin Human Regular (Humulin R) 0 units SC ACHS CATALINO PRN Reason: Protocol Last Admin: 09/24/17 12:59 Dose: Not Given Ketorolac Tromethamine (Toradol) 30 mg IVP Q6 PRN PRN Reason: Pain, moderate (4-7) Last Admin: 09/24/17 04:39 Dose: 30 mg Lisinopril (Zestril) 40 mg PO DAILY [facility] Last Admin: 09/24/17 09:09 Dose: 40 mg Metoprolol Succinate (Toprol Xl) 100 mg PO DAILY [facility] Last Admin: 09/24/17 09:10 Dose: 100 mg Ondansetron HCl (Zofran Inj) 4 mg IVP Q4 PRN PRN Reason: Nausea/Vomiting Oxycodone/Acetaminophen (Percocet 5/325 Mg Tab) 1 tab PO Q4 PRN PRN Reason: Pain, severe (8-10) Stop: 07/20/18 23:50 - Labs Labs: 09/24/17 05:30 09/24/17 05:30 PT 12.2 Seconds (9.8-13.1) 09/22/17 19:05 INR 1.1 (0.9-1.2) 09/22/17 19:05 APTT 29.3 Seconds (25.6-37.1) 09/22/17 19:05 - Constitutional Appears: No Acute Distress - Head Exam Head Exam: NORMAL INSPECTION - Eye Exam Eye Exam: PERRL - ENT Exam ENT Exam: Normal Exam - Neck Exam Neck Exam: Normal Inspection - Respiratory Exam Respiratory Exam: Clear to Ausculation Bilateral - Cardiovascular Exam Cardiovascular Exam: REGULAR RHYTHM, +S1, +S2 - GI/Abdominal Exam GI & Abdominal Exam: Soft, Normal Bowel Sounds. absent: Distended, Guarding, Tenderness, Rebound - Extremities Exam Extremities Exam: Normal Inspection - Back Exam Back Exam: CVA tenderness (L) - Neurological Exam Neurological Exam: Alert, Oriented x3 - Psychiatric Exam Psychiatric exam: Anxious - Skin Skin Exam: Normal Color, Warm Assessment and Plan (1) Pyelonephritis Status: Acute (2) History of penile implant Status: Chronic (3) DM type 2 (diabetes mellitus, type 2) Status: Chronic (4) Pain, joint, multiple sites Status: Chronic
--- NOTE | 2017-09-24 17:51 | CP.PCM.CON ---
History of Present Illness - History of Present Illness History of Present Illness: 62 yo male with HTN, DM and chronic back pain presents with back pain, fever and dysuria. Referred for ID eval of pyelonephritis- hx of nephrolithisis and penile implant but denies recent infections Pt states the urinary frequency and dysuria began yesterday. PT takes percocet for back pain and states he thought back pain was related to that. - Medical History PMH: Anxiety, Arthritis, Asthma, Depression, Diabetes, Deep Vein Thrombosis (To the RLE, not on blood thinners), HTN, Hypercholesterolemia, Hypothyroidism, Kidney Stones, Chronic Kidney Disease, Chronic Pain (back ) - Surgical History Surgical History: Appendectomy, Endoscopy, penile prosthesis - Family History Family History: States: Unknown Family Hx Review of Systems - Review of Systems All systems: reviewed and no additional remarkable complaints except - Constitutional Constitutional: As Per HPI - EENT Eyes: absent: As Per HPI, Blind Spots, Blurred Vision, Change in Vision, Decreased Night Vision, Diplopia, Discharge, Dry Eye, Exophthalmos, Floaters, Irritation, Itchy Eyes, Loss of Peripheral Vision, Pain, Photophobia, Requires Corrective Lenses, Sees Flashes, Spots in Vision, Tunnel Vision, Other Visual Disturbances, Loss of Vision, Other Ears: absent: As Per HPI, Decreased Hearing, Ear Discharge, Ear Pain, Tinnitus, Abnormal Hearing, Disequilibrium, Dizziness, Other Nose/Mouth/Throat: absent: As Per HPI, Epistaxis, Nasal Congestion, Nasal Discharge, Nasal Obstruction, Nasal Trauma, Nose Pain, Post Nasal Drip, Sinus Pain, Sinus Pressure, Bleeding Gums, Change in Voice, Dental Pain, Dry Mouth, Dysphagia, Halitosis, Hoarsness, Lip Swelling, Mouth Lesions, Mouth Pain, Odynophagia, Sore Throat, Throat Swelling, Tongue Swelling, Facial Pain, Neck Pain, Neck Mass, Other - Cardiovascular Cardiovascular: absent: As Per HPI, Acrocyanosis, Chest Pain, Chest Pain at Rest , Chest Pain with Activity, Claudication, Diaphoresis, Dyspnea, Dyspnea on Exertion, Edema, Irregular Heart Rhythm, Pain Radiating to Arm/Neck/Jaw, Leg Edema, Leg Ulcers, Lightheadedness, Orthopnea, Palpitations, Paroxysmal Nocturnal Dyspnea, Pedal Edema, Radiating Pain, Rapid Heart Rate, Slow Heart Rate, Syncope, Other - Respiratory Respiratory: absent: As Per HPI, Cough, Dyspnea, Hemoptysis, Dyspnea on Exertion , Wheezing, Snoring, Stridor, Pain on Inspiration, Chest Congestion, Excessive Mucous Production, Change in Mucous Color, Pain with Coughing, Other - Gastrointestinal Gastrointestinal: As Per HPI - Genitourinary Genitourinary: As Per HPI - Musculoskeletal Musculoskeletal: absent: As Per HPI, Abnormal Gait, Arthralgias, Atrophy, Back Pain, Deformity, Joint Swelling, Limited Range of Motion, Loss of Height, Muscle Cramps, Muscle Weakness, Myalgias, Neck Pain, Numbness, Radiating Pain into Limb, Stiffness, Tingling, Other - Integumentary Integumentary: absent: As Per HPI, Acne, Alopecia, Bleeding Lesions, Change in Hair, Change in Nails, Change in Pigmentation, Changing Lesions, Dry Skin, Erythema, Furuncle, Hirsutism, Lesions, New Lesions, Non-Healing Lesions, Photosensitivity, Pruritus, Rash, Skin Pain, Skin Ulcer, Sores, Striae, Swelling , Unusual Bruising, Wounds, Jaundice, Other - Neurological Neurological: absent: As Per HPI, Abnormal Gait, Abnormal Hearing, Abnormal Movements, Abnormal Speech, Behavioral Changes, Burning Sensations, Confusion, Convulsions, Disequilibrium, Dizziness, Numbness, Focal Weakness, Frequent Falls , Headaches, Lack of Coordination, Loss of Vision, Memory Loss, Paresthesias, Radicular Pain, Restless Legs, Sensory Deficit, Syncope, Tingling, Tremor, Vertigo, Weakness, Other Visual Disturbances, Other - Psychiatric Psychiatric: absent: As Per HPI, Abnormal Sleep Pattern, Anhedonia, Anxiety, Auditory Hallucinations, Behavioral Changes, Change in Appetite, Change in Libido, Confusion, Depression, Difficulty Concentrating, Hallucinations, Homicidal Ideation, Hopelessness, Irritability, Memory Loss, Mood Swings, Panic Attacks, Paranoia, Suicidal Ideation, Visual Hallucinations, Tactile Hallucinations, Other - Endocrine Endocrine: absent: As Per HPI, Change in Body Appearance, Change in Libido, Cold Intolorance, Deepening of Voice, Excessive Sweating, Fatigue, Flushing, Heat Intolorance, Increase in Ring/Shoe/Hat Size, Palpitations, Polydipsia, Polyphagia, Polyuria, Other - Hematologic/Lymphatic Hematologic: absent: As Per HPI, Easy Bleeding, Easy Bruising, Lymphadenopathy, Other Past Patient History - Infectious Disease Hx of Infectious Diseases: None - Tetanus Immunizations Tetanus Immunization: Unknown - Past Medical History & Family History Past Medical History?: Yes - Past Social History Smoking Status: Never Smoked - CARDIAC Hx Cardiac Disorders: Yes Hx Hypercholesterolemia: Yes Hx Hypertension: Yes - PULMONARY Hx Asthma: Yes - NEUROLOGICAL Hx Neurological Disorder: No - HEENT Hx HEENT Problems: No - RENAL Hx Chronic Kidney Disease: Yes Hx Dialysis: No Hx Kidney Stones: Yes - ENDOCRINE/METABOLIC Hx Endocrine Disorders: Yes Hx Diabetes Mellitus Type 2: Yes Hx Hypothyroidism: Yes - HEMATOLOGICAL/ONCOLOGICAL Hx Blood Disorders: Yes Other/Comment: DVT R. lower ext - INTEGUMENTARY Hx Dermatological Problems: No - MUSCULOSKELETAL/RHEUMATOLOGICAL Hx Musculoskeletal Disorders: Yes Hx Arthritis: Yes Hx Falls: No - GASTROINTESTINAL Hx Gastrointestinal Disorders: Yes Hx Hemorrhoids: Yes - GENITOURINARY/GYNECOLOGICAL Hx Genitourinary Disorders: Yes Other/Comment: Erectile dysfunction. Penile implant/pump - PSYCHIATRIC Hx Psychophysiologic Disorder: Yes Hx Anxiety: Yes Hx Depression: Yes Hx Substance Use: No - SURGICAL HISTORY Hx Appendectomy: Yes Other/Comment: Penile sx. Epidural - ANESTHESIA Hx Anesthesia: Yes Hx Anesthesia Reactions: No Hx Malignant Hyperthermia: No Meds Allergies/Adverse Reactions: Allergies Allergy/AdvReac Type Severity Reaction Status Date / Time No Known Allergies Allergy Verified 09/22/17 20:45 - Medications Medications: Current Medications Acetaminophen (Tylenol 325mg Tab) 650 mg PO Q4 PRN PRN Reason: Fever >100.4 F Last Admin: 09/24/17 04:29 Dose: 650 mg Alprazolam (Xanax) 1 mg PO HS PRN PRN Reason: Insomnia Last Admin: 09/23/17 22:44 Dose: 1 mg Amlodipine Besylate (Norvasc) 10 mg PO DAILY [facility] Last Admin: 09/24/17 09:09 Dose: 10 mg Glipizide (Glucotrol Xl) 5 mg PO BRK CATALINO Last Admin: 09/24/17 09:09 Dose: 5 mg Meropenem 500 mg/ Sodium (Chloride) 100 mls @ 100 mls/hr IVPB Q8@0600,1400, 2200 CATALINO PRN Reason: Protocol Insulin Human Regular (Humulin R) 0 units SC ACHS CATALINO PRN Reason: Protocol Last Admin: 09/24/17 12:59 Dose: Not Given Ketorolac Tromethamine (Toradol) 30 mg IVP Q6 PRN PRN Reason: Pain, moderate (4-7) Last Admin: 09/24/17 04:39 Dose: 30 mg Lisinopril (Zestril) 40 mg PO DAILY [facility] Last Admin: 09/24/17 09:09 Dose: 40 mg Metoprolol Succinate (Toprol Xl) 100 mg PO DAILY [facility] Last Admin: 09/24/17 09:10 Dose: 100 mg Ondansetron HCl (Zofran Inj) 4 mg IVP Q4 PRN PRN Reason: Nausea/Vomiting Oxycodone/Acetaminophen (Percocet 5/325 Mg Tab) 1 tab PO Q4 PRN PRN Reason: Pain, severe (8-10) Stop: 09/25/17 23:50 Physical Exam - Constitutional Appears: Non-toxic, Chronically Ill - Head Exam Head Exam: NORMOCEPHALIC - Eye Exam Eye Exam: PERRL. absent: Scleral icterus - ENT Exam ENT Exam: Mucous Membranes Dry, Normal External Ear Exam, Normal Oropharynx - Neck Exam Neck exam: Negative for: Lymphadenopathy - Respiratory Exam Respiratory Exam: Decreased Breath Sounds, Clear to Auscultation Bilateral - Cardiovascular Exam Cardiovascular Exam: REGULAR RHYTHM, +S1, +S2 - GI/Abdominal Exam GI & Abdominal Exam: Diminished Bowel Sounds, Soft. absent: Tenderness - Rectal Exam Rectal Exam: Deferred - Exam Exam: absent: Testicular Tenderness - Extremities Exam Extremities exam: Negative for: pedal edema - Back Exam Back exam: absent: CVA tenderness (L), CVA tenderness (R) - Neurological Exam Neurological exam: Alert, CN II-XII Intact, Oriented x3, Reflexes Normal - Psychiatric Exam Psychiatric exam: Normal Mood - Skin Skin Exam: Dry, Intact Results - Vital Signs Recent Vital Signs: Last Vital Signs Temp 98.7 F 09/24/17 16:12 Pulse 100 H 09/24/17 16:12 Resp 20 09/24/17 16:12 BP 112/71 09/24/17 16:12 Pulse Ox 96 09/24/17 16:12 - Labs Result Diagrams: 09/24/17 05:30 09/24/17 05:30 Labs: Laboratory Results - last 24 hr 09/23/17 09/23/17 09/23/17 05:38 11:11 15:51 WBC RBC Hgb Hct MCV MCH MCHC RDW Plt Count ESR Sodium Potassium Chloride Carbon Dioxide Anion Gap BUN Creatinine Est GFR ( Amer) Est GFR (Non-Af Amer) POC Glucose (mg/dL) 182 H 209 H 210 H Random Glucose Calcium Prostate Specific Ag Rheumatoid Arth Interp 09/23/17 09/24/17 09/24/17 21:33 05:30 05:30 WBC 23.7 H RBC 4.19 L Hgb 12.7 Hct 36.9 MCV 88.2 MCH 30.3 MCHC 34.4 RDW 13.7 Plt Count 130 ESR 66 H Sodium 133 Potassium 3.8 Chloride 98 Carbon Dioxide 21 L Anion Gap 18 BUN 10 Creatinine 0.8 Est GFR ( Amer) > 60 Est GFR (Non-Af Amer) > 60 POC Glucose (mg/dL) 254 H Random Glucose 192 H Calcium 9.4 Prostate Specific Ag 28.3 H Rheumatoid Arth Interp 09/24/17 09/24/17 09/24/17 05:30 05:52 11:06 WBC RBC Hgb Hct MCV MCH MCHC RDW Plt Count ESR Sodium Potassium Chloride Carbon Dioxide Anion Gap BUN Creatinine Est GFR ( Amer) Est GFR (Non-Af Amer) POC Glucose (mg/dL) 185 H 233 H Random Glucose Calcium Prostate Specific Ag Rheumatoid Arth Interp Negative 09/24/17 16:03 WBC RBC Hgb Hct MCV MCH MCHC RDW Plt Count ESR Sodium Potassium Chloride Carbon Dioxide Anion Gap BUN Creatinine Est GFR ( Amer) Est GFR (Non-Af Amer) POC Glucose (mg/dL) 220 H Random Glucose Calcium Prostate Specific Ag Rheumatoid Arth Interp Assessment & Plan (1) Pyelonephritis Status: Acute (2) DM type 2 (diabetes mellitus, type 2) Status: Chronic (3) History of penile implant Status: Chronic - Assessment and Plan (Free Text) Assessment: improving on merrem await blood cultures consider eval and follow up - nephrolithiasis with pyelonephritis , penile prodthesis Plan: will liklely need 14 days total IV antibiotics
[2017-09-24] MEDS: Meropenem 500 MG in Sodium Chloride 0.9% 100 ML IVPB SCH (21:19)
[2017-09-24] MEDS ORDERED: Albuterol-Ipratrop 3 mg / 0.5 (3 ml) UD INH PRN (21:20)
[2017-09-25] MEDS: Meropenem 500 MG in Sodium Chloride 0.9% 100 ML IVPB SCH ×3 (05:11→22:14)
[2017-09-25 06:19] LABS: HEMOGLOBIN 12.2 g/dL (12.0-18.0); MEAN CELL VOLUME 87.7 fl (80.0-94.0); MEAN CORPUSCULAR HEMOGLOBIN 30.4 pg (27.0-31.0); MEAN CORPUSCULAR HGB CONC 34.7 g/dL (33.0-37.0); RBC 4.02 Mil/uL (4.40-5.90); RED CELL DISTRIBUTION WIDTH 13.7 % (11.5-14.5); WHITE BLOOD COUNT 18.6 K/uL (4.8-10.8)
[2017-09-25 06:46] LABS: BLOOD UREA NITROGEN 13 mg/dl (9-20); CALCIUM 8.8 mg/dL (8.4-10.2); GFR NON-AFRICAN AMERICAN > 60
[2017-09-25] MEDS: Budesonide 0.5 mg/2 ml Inhal Susp UD IH SCH ×2 (07:49→19:21)
[2017-09-25] MEDS ORDERED: Iohexol 300 100 ML IJ ONE (08:22)
[2017-09-25] MEDS ORDERED: Sodium Chloride 0.9% 50 ML IV ONE (08:23)
[2017-09-25] MEDS: Insulin Regular 100 units/ml SC SCH ×4 (09:11→22:12)
[2017-09-25] MEDS: Metoprolol Succinate 100 mg XL Tab PO SCH (09:12)
[2017-09-25] MEDS: GlipiZIDE 5 mg SR Tab PO SCH (09:12)
--- NOTE | 2017-09-25 13:15 | CT ---
Date of service: 09/25/2017 PROCEDURE: CT Abdomen and Pelvis with and without intravenous contrast HISTORY: pyelonephritis COMPARISON: None. TECHNIQUE: Axial images of the abdomen were obtained in the pre contrast, arterial and delayed phases of enhancement. Coronal and sagittal reformats were generated. Delayed images were obtained through the abdomen and pelvis. Contrast dose: 95 cc Omnipaque 350 Radiation dose: Total exam DLP = 1695.27 mGy-cm. This CT exam was performed using one or more of the following dose reduction techniques: Automated exposure control, adjustment of the mA and/or kV according to patient size, and/or use of iterative reconstruction technique. FINDINGS: LOWER THORAX: Unremarkable. LIVER: Unremarkable. No gross lesion or ductal dilatation. GALLBLADDER AND BILE DUCTS: Unremarkable. PANCREAS: Unremarkable. No gross lesion or ductal dilatation. SPLEEN: Unremarkable. ADRENALS: Unremarkable. No mass. KIDNEYS AND URETERS: Please note that evaluation of the kidneys is limited due to the absence of nephrographic phase images. Arterial phase images demonstrate homogeneous perfusion of the renal cortex without evidence of any wedge shaped defect to suggest pyelonephritis. There is a cortical cyst in the upper pole of the left kidney measuring approximately 2.9 cm in greatest dimension. This measures 10 Hounsfield units. There is a 9 mm cortical cyst in the upper pole of the right kidney. There is no other renal mass. There is no evidence of renal abscess. There is no renal calculus. There is no hydronephrosis. There is no ureteral calculus or hydroureter. Urographic phase images demonstrate no filling defect in the pelvicaliceal system bilaterally. Opacified portions of the ureters are unremarkable in appearance. VASCULATURE: Unremarkable. No aortic aneurysm. BOWEL: Unremarkable. No obstruction. No gross mural thickening. APPENDIX: Not identified. No secondary findings. PERITONEUM: Unremarkable. No free fluid. No free air. LYMPH NODES: Unremarkable. No enlarged lymph nodes. BLADDER: Unremarkable. REPRODUCTIVE: Normal prostate. Penile prosthesis reservoir in the left lower pelvis. BONES: No acute fracture. OTHER FINDINGS: None. IMPRESSION: Limited examination as detailed above. No evidence of pyelonephritis. Bilateral renal cysts. No evidence of urinary tract obstruction. No evidence of renal abscess. Penile prosthesis with reservoir in the left lower pelvis.
--- NOTE | 2017-09-25 14:34 | CP.PCM.PN ---
Subjective - Date & Time of Evaluation Date of Evaluation: 09/25/17 Time of Evaluation: 09:00 - Subjective Subjective: AFEB THIS AM DENIES PAIN IN PROSTHESIS CT KIDNEY NEG FOR ABSCESS/ PYELO EVAL IN PROGRESS Objective - Vital Signs/Intake and Output Vital Signs (last 24 hours): Temp Pulse Resp BP Pulse Ox 98.9 F 79 19 118/71 95 09/25/17 07:56 09/25/17 09:12 09/25/17 07:56 09/25/17 09:12 09/25/17 07:56 - Medications Medications: Current Medications Acetaminophen (Tylenol 325mg Tab) 650 mg PO Q4 PRN PRN Reason: Fever >100.4 F Last Admin: 09/24/17 04:29 Dose: 650 mg Albuterol/Ipratropium (Duoneb 3 Mg/0.5 Mg (3 Ml) Ud) 3 ml INH RQ6 PRN PRN Reason: Wheezing Alprazolam (Xanax) 1 mg PO HS PRN PRN Reason: Insomnia Last Admin: 09/24/17 22:56 Dose: 1 mg Amlodipine Besylate (Norvasc) [address] [facility] Last Admin: 09/25/17 09:12 Dose: 10 mg Budesonide (Pulmicort Respules) 0.[address] [facility] Last Admin: 09/25/17 07:49 Dose: 0.5 mg Glipizide (Glucotrol Xl) [address] [facility] Last Admin: 09/25/17 09:12 Dose: 5 mg Meropenem 500 mg/ Sodium (Chloride) 100 mls @ 100 mls/hr IVPB Q8@0600,1400, 2200 [facility] PRN Reason: Protocol Last Admin: 09/25/17 13:06 Dose: 100 mls/hr Ibuprofen (Motrin Tab) 400 mg PO Q6 PRN PRN Reason: Temperature Insulin Human Regular (Humulin R) [address] [facility] PRN Reason: Protocol Last Admin: 09/25/17 12:11 Dose: Not Given Ketorolac Tromethamine (Toradol) 30 mg IVP Q6 PRN PRN Reason: Pain, moderate (4-7) Last Admin: 09/24/17 20:22 Dose: 30 mg Lisinopril (Zestril) [address] [facility] Last Admin: 09/25/17 09:12 Dose: 40 mg Metoprolol Succinate (Toprol Xl) 100 mg PO DAILY [facility] Last Admin: 09/25/17 09:12 Dose: 100 mg Ondansetron HCl (Zofran Inj) 4 mg IVP Q4 PRN PRN Reason: Nausea/Vomiting Oxycodone/Acetaminophen (Percocet 5/325 Mg Tab) 1 tab PO Q4 PRN PRN Reason: Pain, severe (8-10) Stop: 09/25/17 23:50 - Labs Labs: 09/25/17 05:55 09/25/17 05:55 PT 12.2 Seconds (9.8-13.1) 09/22/17 19:05 INR 1.1 (0.9-1.2) 09/22/17 19:05 APTT 29.3 Seconds (25.6-37.1) 09/22/17 19:05 - Constitutional Appears: Non-toxic, Chronically Ill - Head Exam Head Exam: NORMOCEPHALIC - Eye Exam Eye Exam: PERRL - ENT Exam ENT Exam: Mucous Membranes Dry - Neck Exam Neck Exam: absent: Lymphadenopathy - Respiratory Exam Respiratory Exam: Decreased Breath Sounds - Cardiovascular Exam Cardiovascular Exam: REGULAR RHYTHM - GI/Abdominal Exam GI & Abdominal Exam: Distended - Rectal Exam Rectal Exam: Deferred - Exam Exam: NORMAL INSPECTION - Extremities Exam Extremities Exam: absent: Pedal Edema - Back Exam Back Exam: absent: CVA tenderness (L), CVA tenderness (R) - Neurological Exam Neurological Exam: Alert, Awake, Oriented x3 - Psychiatric Exam Psychiatric exam: Normal Mood - Skin Skin Exam: Dry Assessment and Plan (1) Pyelonephritis Status: Acute (2) DM type 2 (diabetes mellitus, type 2) Status: Chronic (3) History of penile implant Status: Chronic - Assessment and Plan (Free Text) Assessment: SEPSIS RESOLVING URINE C/S INDICATES SUSCEPTIBLE ORGANISM MAY NEED 14 DAYS IV RX AWAIT EVAL
--- NOTE | 2017-09-25 15:31 | CP.PCM.PN ---
Subjective - Date & Time of Evaluation Date of Evaluation: 09/25/17 Time of Evaluation: 14:10 - Subjective Subjective: F/U Pyelonephritis Patient seen and examined at bedside. Patient feels better, and reports that dysuria is improving. Denies Left flank pain at this evaluation. Last fever was yesterday. No events overnight. Awaiting for Urology evaluation today Objective - Vital Signs/Intake and Output Vital Signs (last 24 hours): Temp Pulse Resp BP Pulse Ox 98.9 F 79 19 118/71 95 09/25/17 07:56 09/25/17 09:12 09/25/17 07:56 09/25/17 09:12 09/25/17 07:56 - Medications Medications: Current Medications Acetaminophen (Tylenol 325mg Tab) 650 mg PO Q4 PRN PRN Reason: Fever >100.4 F Last Admin: 09/24/17 04:29 Dose: 650 mg Albuterol/Ipratropium (Duoneb 3 Mg/0.5 Mg (3 Ml) Ud) 3 ml INH RQ6 PRN PRN Reason: Wheezing Alprazolam (Xanax) 1 mg PO HS PRN PRN Reason: Insomnia Last Admin: 09/24/17 22:56 Dose: 1 mg Amlodipine Besylate (Norvasc) 10 mg PO DAILY [facility] Last Admin: 09/25/17 09:12 Dose: 10 mg Budesonide (Pulmicort Respules) 0.5 mg IH RBID [facility] Last Admin: 09/25/17 07:49 Dose: 0.5 mg Glipizide (Glucotrol Xl) 5 mg PO BRK [facility] Last Admin: 09/25/17 09:12 Dose: 5 mg Meropenem 500 mg/ Sodium (Chloride) 100 mls @ 100 mls/hr IVPB Q8@0600,1400, 2200 [facility] PRN Reason: Protocol Last Admin: 09/25/17 13:06 Dose: 100 mls/hr Ibuprofen (Motrin Tab) 400 mg PO Q6 PRN PRN Reason: Temperature Insulin Human Regular (Humulin R) 0 units SC ACHS [facility] PRN Reason: Protocol Last Admin: 09/25/17 12:11 Dose: Not Given Ketorolac Tromethamine (Toradol) 30 mg IVP Q6 PRN PRN Reason: Pain, moderate (4-7) Last Admin: 09/24/17 20:22 Dose: 30 mg Lisinopril (Zestril) 40 mg PO DAILY [facility] Last Admin: 09/25/17 09:12 Dose: 40 mg Metoprolol Succinate (Toprol Xl) 100 mg PO DAILY [facility] Last Admin: 09/25/17 09:12 Dose: 100 mg Ondansetron HCl (Zofran Inj) 4 mg IVP Q4 PRN PRN Reason: Nausea/Vomiting Oxycodone/Acetaminophen (Percocet 5/325 Mg Tab) 1 tab PO Q4 PRN PRN Reason: Pain, severe (8-10) Stop: 09/25/17 23:50 - Labs Labs: 09/25/17 05:55 09/25/17 05:55 PT 12.2 Seconds (9.8-13.1) 09/22/17 19:05 INR 1.1 (0.9-1.2) 09/22/17 19:05 APTT 29.3 Seconds (25.6-37.1) 09/22/17 19:05 - Constitutional Appears: Non-toxic, No Acute Distress - Head Exam Head Exam: ATRAUMATIC, NORMOCEPHALIC - Eye Exam Eye Exam: Normal appearance - ENT Exam ENT Exam: Mucous Membranes Moist - Respiratory Exam Respiratory Exam: Clear to Ausculation Bilateral, NORMAL BREATHING PATTERN. absent: Rales, Rhonchi, Wheezes, Respiratory Distress, Stridor - Cardiovascular Exam Cardiovascular Exam: REGULAR RHYTHM, +S1, +S2 - GI/Abdominal Exam GI & Abdominal Exam: Soft, Normal Bowel Sounds. absent: Distended, Guarding, Rigid, Tenderness - Extremities Exam Extremities Exam: Normal Inspection. absent: Calf Tenderness, Pedal Edema - Back Exam Back Exam: NORMAL INSPECTION. absent: CVA tenderness (L), CVA tenderness (R) - Neurological Exam Neurological Exam: Alert, Awake, Oriented x3 - Skin Skin Exam: Dry, Intact, Normal Color, Warm Assessment and Plan (1) Pyelonephritis Status: Acute (2) Left flank tenderness Status: Acute (3) History of penile implant Status: Chronic (4) DM type 2 (diabetes mellitus, type 2) Status: Chronic (5) Chronic back pain Status: Chronic - Assessment and Plan (Free Text) Plan: Improving leukocytosis trending down On IV Meropenem as per ID recs May need 14 days IV treatment as per ID Blood Cx negative after 24/48 hours Urine C&S noted Awaiting of urology eval,recommendations are appreciated ID consult appreciated Respiratory status improving in current treatment c/w diabetic control with current regimen Renal Ct reported no evidence of renal abscess. Bilateral renal cyst. No evidence of UT obstruction
[2017-09-25] MEDS ORDERED: Chlorhexidine Gluconate 1 APPL/PKT TP ONE (17:34)
[2017-09-25] MEDS ORDERED: Alum-Mag Hydrox-Simethicone Susp (30 mL) PO PRN (19:01)
[2017-09-25] MEDS ORDERED: Albuterol-Ipratrop 3 mg / 0.5 (3 ml) UD INH SCH (21:01)
--- NOTE | 2017-09-26 04:57 | CON ---
DATE: 09/25/2017 COMPREHENSIVE UROLOGY CONSULTATION TIME OF CONSULTATION: Roughly 5:50 p.m. BRIEF HISTORY: The patient is a 62-year-old male from [place] with a longstanding history of chronic low back pain secondary to spinal stenosis who presents with acute onset of elevated fever and chills and some right low back pain associated with dysuria. The patient was admitted to [facility] via the ER for treatment of acute pyelonephritis. A renal ultrasound done on 09/23/2017 showed no stone or hydronephrosis visualized. There was a slight interval change appreciated in a partially exophytic left renal complex appearing cyst. Within the exophytic cyst compartment, there may be a few small calcifications within it. Previously, a left more infrarenal parenchymal benign-appearing cyst was suggested. The findings were indeterminate and considered a triple phase contrast-enhanced CT of the kidneys for further evaluation. Abdominopelvic CT done with and without IV contrast on 09/25/2017 showed the evaluation of the kidneys was limited due to the absence of nephrogenic phase images, and the arterial phase images demonstrated homogeneous perfusion of the renal cortex without evidence of any wedge-shaped defect to suggest pyelonephritis. There was a cortical cyst in the upper pole of the left kidney measuring approximately 2.9 cm in its greatest dimension, and this measures 9 Hounsfield units. There is a 9-mm cortical cyst in the upper pole of the right kidney. There is no other renal mass. There is no evidence of renal abscess and no renal calculus. There is no hydronephrosis. There is no ureteral calculus or hydroureter. Urographic phase images demonstrated no filling defect in the pelvicalyceal system bilaterally. Opacified portions of the ureters were unremarkable. Bladder was unremarkable. The patient is status post insertion of an inflatable penile prosthesis by Dr. Omar Clements at [facility] in 2017. The patient has no complaints about the penile prosthesis. The patient does have chronic arthritis. PAST MEDICAL HISTORY: Positive for hypertension, diabetes mellitus, hyperlipidemia, and thyroid disease. He has diabetes mellitus type 2. SOCIAL HISTORY: The patient has a past social history of heavy smoking and alcohol use in the past, but stopped this activity 19 years ago. ALLERGIES: HE HAS NO KNOWN ALLERGIES TO ANY MEDICATIONS. PHYSICAL EXAMINATION TODAY: VITAL SIGNS: Today 09/25/2017 showed a temperature of 98.6, pulse rate 97, blood pressure 122/85, respiratory rate 20, and O2 sat was 97%. HEENT EXAMINATION: Grossly within normal limits. NECK: Supple. Thyroid is not palpable. ABDOMEN: Soft, nondistended, and nontender. No left CVA tenderness. He does have 1+ right CVA tenderness. GENITALIA: The patient is not circumcised with a normal glans and meatus without any rashes or lesions visualized. Testes are down bilaterally. The pump to the penile prosthesis is in the right scrotum. The reservoir was visualized on CAT scan which is in the pelvis. RECTAL EXAMINATION: Normal rectal tone without fluctuance or masses. Prostate is slightly enlarged, smooth, symmetrical, nontender without nodules or indurations with a palpable median sulcus. EXTREMITIES: Has full range of motion in both the upper and lower extremities. LABORATORY DATA: Laboratory evaluation on 09/25/2017 showed a CBC with a WBC count of 18.6, hemoglobin of 12.2, hematocrit of 35.2, and platelet count was 134,000. Chem profile shows a sodium of 134, potassium 4, chloride 98, CO2 of 24, BUN and creatinine 13 and 0.9 respectively with a GFR of greater than 60. Recent glucose was 227. Urinalysis on 09/22/2017 showed straw-colored urine, slightly cloudy, pH 7.5, specific gravity less than 1.005; protein, glucose, ketones, nitrites, bilirubin are all negative; blood small; urobilinogen 0.2 to 1; large leukocyte esterase; 3 rbc's; 108 wbc's; and rare bacteria per high-power field. DIAGNOSTIC IMPRESSION: For this patient, 1. Urinary tract infection. 2. Microscopic hematuria. 3. Dysuria. 4. Normal inflatable penile prosthesis. PLAN: Plan for this patient is just to treat the patient for his urinary tract infection at this time. The patient needs a repeat urinalysis in a few days after treatment with IV antibiotics. Blayne Foster MD [facility]
[2017-09-26] MEDS: Meropenem 500 MG in Sodium Chloride 0.9% 100 ML IVPB SCH ×3 (05:34→22:07)
[2017-09-26] MEDS: Insulin Regular 100 units/ml SC SCH ×3 (06:32→17:16)
[2017-09-26] MEDS: Budesonide 0.5 mg/2 ml Inhal Susp UD IH SCH ×2 (07:21→19:23)
[2017-09-26] MEDS: GlipiZIDE 5 mg SR Tab PO SCH (08:27)
[2017-09-26] MEDS: Metoprolol Succinate 100 mg XL Tab PO SCH (08:27)
[2017-09-26] MEDS: Pantoprazole 40 mg EC Tab PO SCH (15:34)
--- NOTE | 2017-09-26 16:39 | CP.PCM.PN ---
Subjective - Date & Time of Evaluation Date of Evaluation: 09/26/17 Time of Evaluation: 14:30 - Subjective Subjective: F/U Pyelonephritis no L Flank pain, no inguinal pain, no SOB Objective - Vital Signs/Intake and Output Vital Signs (last 24 hours): Temp Pulse Resp BP Pulse Ox 97.6 F 91 H 18 129/85 96 09/26/17 15:56 09/26/17 15:56 09/26/17 15:56 09/26/17 15:56 09/26/17 15:56 - Medications Medications: Current Medications Acetaminophen (Tylenol 325mg Tab) 650 mg PO Q4 PRN PRN Reason: Fever >100.4 F Last Admin: 09/24/17 04:29 Dose: 650 mg Al Hydrox/Mg Hydrox/Simethicone (Maalox Plus 30 Ml) 30 ml PO Q4 PRN PRN Reason: Indigestion / Heartburn Last Admin: 09/25/17 20:26 Dose: 30 ml Albuterol/Ipratropium (Duoneb 3 Mg/0.5 Mg (3 Ml) Ud) 3 ml INH RQ6 PRN PRN Reason: Wheezing Alprazolam (Xanax) 1 mg PO HS PRN PRN Reason: Insomnia Last Admin: 09/25/17 23:33 Dose: 1 mg Amlodipine Besylate (Norvasc) 10 mg PO DAILY [facility] Last Admin: 09/26/17 08:26 Dose: 10 mg Budesonide (Pulmicort Respules) 0.5 mg IH RBID [facility] Last Admin: 09/26/17 07:21 Dose: Not Given Glipizide (Glucotrol Xl) 5 mg PO BRK [facility] Last Admin: 09/26/17 08:27 Dose: 5 mg Meropenem 500 mg/ Sodium (Chloride) 100 mls @ 100 mls/hr IVPB Q8@0600,1400, 2200 [facility] PRN Reason: Protocol Last Admin: 09/26/17 13:43 Dose: 100 mls/hr Ibuprofen (Motrin Tab) 400 mg PO Q6 PRN PRN Reason: Temperature Ketorolac Tromethamine (Toradol) 30 mg IVP Q6 PRN PRN Reason: Pain, moderate (4-7) Last Admin: 09/24/17 20:22 Dose: 30 mg Lisinopril (Zestril) 40 mg PO DAILY [facility] Last Admin: 09/26/17 08:26 Dose: 40 mg Metoprolol Succinate (Toprol Xl) 100 mg PO DAILY [facility] Last Admin: 09/26/17 08:27 Dose: 100 mg Ondansetron HCl (Zofran Inj) 4 mg IVP Q4 PRN PRN Reason: Nausea/Vomiting Pantoprazole Sodium (Protonix Ec Tab) 40 mg PO DAILY [facility] Last Admin: 09/26/17 15:34 Dose: 40 mg - Labs Labs: 09/25/17 05:55 09/25/17 05:55 PT 12.2 Seconds (9.8-13.1) 09/22/17 19:05 INR 1.1 (0.9-1.2) 09/22/17 19:05 APTT 29.3 Seconds (25.6-37.1) 09/22/17 19:05 - Constitutional Appears: No Acute Distress - Head Exam Head Exam: NORMAL INSPECTION - Eye Exam Eye Exam: PERRL - ENT Exam ENT Exam: Mucous Membranes Moist - Neck Exam Neck Exam: Normal Inspection - Respiratory Exam Respiratory Exam: Clear to Ausculation Bilateral - Cardiovascular Exam Cardiovascular Exam: REGULAR RHYTHM - GI/Abdominal Exam GI & Abdominal Exam: Soft, Normal Bowel Sounds - Exam Additional comments: no L inguinal-scrotal tenderness, penile implant - Extremities Exam Extremities Exam: Normal Inspection - Back Exam Back Exam: NORMAL INSPECTION - Neurological Exam Neurological Exam: Alert, Oriented x3 - Psychiatric Exam Psychiatric exam: Normal Affect - Skin Skin Exam: Normal Color, Warm Assessment and Plan (1) Pyelonephritis Status: Acute (2) Left flank tenderness Status: Acute (3) History of penile implant Status: Chronic (4) DM type 2 (diabetes mellitus, type 2) Status: Chronic (5) Chronic back pain Status: Chronic (6) Bronchial asthma Status: Acute - Assessment and Plan (Free Text) Plan: continue Merren Tx Pyelonephritis, DuoNeb, Pulmicort, Tx Bronchial Asthma, Norvasc, Toprol, Zestril Tx HTN , Glucotrol Tx DM, Toradol Tx L Flank, Chronic Lumbago
[2017-09-27] MEDS: Meropenem 500 MG in Sodium Chloride 0.9% 100 ML IVPB SCH (05:34)
[2017-09-27] MEDS: Budesonide 0.5 mg/2 ml Inhal Susp UD IH SCH ×2 (07:34→19:41)
[2017-09-27] MEDS: Metoprolol Succinate 100 mg XL Tab PO SCH (08:10)
[2017-09-27] MEDS: GlipiZIDE 5 mg SR Tab PO SCH (08:10)
[2017-09-27] MEDS: Pantoprazole 40 mg EC Tab PO SCH (08:10)
--- NOTE | 2017-09-27 12:33 | CP.PCM.PN ---
Subjective - Date & Time of Evaluation Date of Evaluation: 09/27/17 Time of Evaluation: 09:00 - Subjective Subjective: afeb in NAD Objective - Vital Signs/Intake and Output Vital Signs (last 24 hours): Temp Pulse Resp BP Pulse Ox 98.1 F 107 H 20 140/89 95 09/27/17 08:56 09/27/17 08:56 09/27/17 08:56 09/27/17 08:56 09/27/17 08:56 - Medications Medications: Current Medications Acetaminophen (Tylenol 325mg Tab) 650 mg PO Q4 PRN PRN Reason: Fever >100.4 F Last Admin: 09/24/17 04:29 Dose: 650 mg Al Hydrox/Mg Hydrox/Simethicone (Maalox Plus 30 Ml) 30 ml PO Q4 PRN PRN Reason: Indigestion / Heartburn Last Admin: 09/25/17 20:26 Dose: 30 ml Albuterol/Ipratropium (Duoneb 3 Mg/0.5 Mg (3 Ml) Ud) 3 ml INH RQ6 PRN PRN Reason: Wheezing Last Admin: 09/27/17 07:32 Dose: 3 ml Alprazolam (Xanax) 1 mg PO HS PRN PRN Reason: Insomnia Last Admin: 09/26/17 23:01 Dose: 1 mg Amlodipine Besylate (Norvasc) 10 mg PO DAILY [facility] Last Admin: 09/27/17 08:10 Dose: 10 mg Budesonide (Pulmicort Respules) 0.5 mg IH RBID [facility] Last Admin: 09/27/17 07:34 Dose: 0.5 mg Glipizide (Glucotrol Xl) 5 mg PO BRK [facility] Last Admin: 09/27/17 08:10 Dose: 5 mg Meropenem 500 mg/ Sodium (Chloride) 100 mls @ 100 mls/hr IVPB Q8@0600,1400, 2200 [facility] PRN Reason: Protocol Last Admin: 09/27/17 05:34 Dose: 100 mls/hr Ibuprofen (Motrin Tab) 400 mg PO Q6 PRN PRN Reason: Temperature Ketorolac Tromethamine (Toradol) 30 mg IVP Q6 PRN PRN Reason: Pain, moderate (4-7) Last Admin: 09/27/17 10:02 Dose: 30 mg Lisinopril (Zestril) 40 mg PO DAILY [facility] Last Admin: 09/27/17 08:11 Dose: 40 mg Metoprolol Succinate (Toprol Xl) 100 mg PO DAILY [facility] Last Admin: 09/27/17 08:10 Dose: 100 mg Ondansetron HCl (Zofran Inj) 4 mg IVP Q4 PRN PRN Reason: Nausea/Vomiting Pantoprazole Sodium (Protonix Ec Tab) 40 mg PO DAILY [facility] Last Admin: 09/27/17 08:10 Dose: 40 mg - Labs Labs: 09/25/17 05:55 09/25/17 05:55 PT 12.2 Seconds (9.8-13.1) 09/22/17 19:05 INR 1.1 (0.9-1.2) 09/22/17 19:05 APTT 29.3 Seconds (25.6-37.1) 09/22/17 19:05 - Constitutional Appears: Non-toxic, Chronically Ill - Head Exam Head Exam: NORMOCEPHALIC - Eye Exam Eye Exam: PERRL - ENT Exam ENT Exam: Mucous Membranes Dry - Neck Exam Neck Exam: absent: Lymphadenopathy - Respiratory Exam Respiratory Exam: Decreased Breath Sounds - Cardiovascular Exam Cardiovascular Exam: REGULAR RHYTHM - GI/Abdominal Exam GI & Abdominal Exam: Distended, Soft Assessment and Plan (1) Pyelonephritis Status: Acute (2) DM type 2 (diabetes mellitus, type 2) Status: Chronic (3) History of penile implant Status: Chronic - Assessment and Plan (Free Text) Assessment: cont IV then PO rx for 14 days
[2017-09-27] MEDS: Ciprofloxacin 400mg/200ml D5W 400 MG/200 ML BAG IVPB SCH ×2 (13:20→20:06)
--- NOTE | 2017-09-27 14:55 | CP.PCM.PN ---
Subjective - Date & Time of Evaluation Date of Evaluation: 09/27/17 Time of Evaluation: 11:15 - Subjective Subjective: F/U Pyelonephritis. L-S Pain earlier, no L Flank pain, no dysuria , no L inguinal or Testicular pain Objective - Vital Signs/Intake and Output Vital Signs (last 24 hours): Temp Pulse Resp BP Pulse Ox 98.1 F 107 H 20 140/89 95 09/27/17 08:56 09/27/17 08:56 09/27/17 08:56 09/27/17 08:56 09/27/17 08:56 - Medications Medications: Current Medications Acetaminophen (Tylenol 325mg Tab) 650 mg PO Q4 PRN PRN Reason: Fever >100.4 F Last Admin: 09/24/17 04:29 Dose: 650 mg Al Hydrox/Mg Hydrox/Simethicone (Maalox Plus 30 Ml) 30 ml PO Q4 PRN PRN Reason: Indigestion / Heartburn Last Admin: 09/25/17 20:26 Dose: 30 ml Albuterol/Ipratropium (Duoneb 3 Mg/0.5 Mg (3 Ml) Ud) 3 ml INH RQ6 PRN PRN Reason: Wheezing Last Admin: 09/27/17 07:32 Dose: 3 ml Alprazolam (Xanax) 1 mg PO HS PRN PRN Reason: Insomnia Last Admin: 09/26/17 23:01 Dose: 1 mg Amlodipine Besylate (Norvasc) 10 mg PO DAILY [facility] Last Admin: 09/27/17 08:10 Dose: 10 mg Budesonide (Pulmicort Respules) 0.5 mg IH RBID [facility] Last Admin: 09/27/17 07:34 Dose: 0.5 mg Glipizide (Glucotrol Xl) 5 mg PO BRK [facility] Last Admin: 09/27/17 08:10 Dose: 5 mg Ciprofloxacin (Cipro 400mg/200ml Dsw) 400 mg in 200 mls @ 200 mls/hr IVPB Q12 [facility] PRN Reason: Protocol Last Admin: 09/27/17 13:20 Dose: 200 mls/hr Ibuprofen (Motrin Tab) 400 mg PO Q6 PRN PRN Reason: Temperature Ketorolac Tromethamine (Toradol) 30 mg IVP Q6 PRN PRN Reason: Pain, moderate (4-7) Last Admin: 09/27/17 10:02 Dose: 30 mg Lisinopril (Zestril) 40 mg PO DAILY [facility] Last Admin: 09/27/17 08:11 Dose: 40 mg Metoprolol Succinate (Toprol Xl) 100 mg PO DAILY [facility] Last Admin: 09/27/17 08:10 Dose: 100 mg Pantoprazole Sodium (Protonix Ec Tab) 40 mg PO DAILY [facility] Last Admin: 09/27/17 08:10 Dose: 40 mg - Labs Labs: 09/25/17 05:55 09/25/17 05:55 PT 12.2 Seconds (9.8-13.1) 09/22/17 19:05 INR 1.1 (0.9-1.2) 09/22/17 19:05 APTT 29.3 Seconds (25.6-37.1) 09/22/17 19:05 - Constitutional Appears: No Acute Distress - Head Exam Head Exam: NORMAL INSPECTION - Eye Exam Eye Exam: PERRL - ENT Exam ENT Exam: Normal Exam - Neck Exam Neck Exam: Normal Inspection - Respiratory Exam Respiratory Exam: Clear to Ausculation Bilateral - Cardiovascular Exam Cardiovascular Exam: REGULAR RHYTHM - GI/Abdominal Exam GI & Abdominal Exam: Soft, Normal Bowel Sounds - Exam Additional comments: no inguinal or testicular pain, penile implant - Extremities Exam Extremities Exam: Normal Inspection - Back Exam Back Exam: NORMAL INSPECTION. absent: tenderness - Neurological Exam Neurological Exam: Alert, Oriented x3 Additional comments: no focal motor/sensory deficit - Skin Skin Exam: Normal Color, Warm Assessment and Plan (1) Pyelonephritis Status: Acute (2) Left flank tenderness Status: Acute (3) History of penile implant Status: Chronic (4) DM type 2 (diabetes mellitus, type 2) Status: Chronic (5) Chronic back pain Status: Chronic - Assessment and Plan (Free Text) Plan: switch to Cipro ID and urology f/u appreciated
--- NOTE | 2017-09-27 18:37 | PN ---
DATE: 09/27/2017 TIME OF FOLLOWUP: Roughly almost 2:00 p.m. The patient is now feeling 100% better. Minimal complaint of pain and his dysuria is now completely resolved. Dr. Morris of [place] changed his antibiotics to Cipro. His urine C and S showed greater than 100,000 colonies of Klebsiella pneumoniae, sensitive to Rocephin, Bactrim, ertapenem, cefazolin, ciprofloxacin, cefepime, gentamicin, meropenem, and Zosyn. The patient thinks he will be discharged home tomorrow, 09/28/2017, on oral antibiotics. Blayne Foster MD
[2017-09-28] MEDS: Budesonide 0.5 mg/2 ml Inhal Susp UD IH SCH (07:03)
[2017-09-28 08:29] VITALS: BP 130/81; PULSE 89; RESP 20; TEMP 97.9; O2SAT 95
[2017-09-28] MEDS: Ciprofloxacin 400mg/200ml D5W 400 MG/200 ML BAG IVPB SCH (09:17)
[2017-09-28] MEDS: GlipiZIDE 5 mg SR Tab PO SCH (09:18)
[2017-09-28] MEDS: Pantoprazole 40 mg EC Tab PO SCH (09:18)
[2017-09-28] MEDS: Metoprolol Succinate 100 mg XL Tab PO SCH (09:18)
--- NOTE | 2017-09-28 11:16 | CP.PCM.PN ---
Subjective - Date & Time of Evaluation Date of Evaluation: 09/28/17 Time of Evaluation: 09:00 - Subjective Subjective: afeb on cipro cont rx 14 more dqays with gu follow uyp Objective - Vital Signs/Intake and Output Vital Signs (last 24 hours): Temp Pulse Resp BP Pulse Ox 97.9 F 89 20 130/81 95 09/28/17 08:29 09/28/17 09:19 09/28/17 08:29 09/28/17 09:19 09/28/17 08:29 - Medications Medications: Current Medications Acetaminophen (Tylenol 325mg Tab) 650 mg PO Q4 PRN PRN Reason: Fever >100.4 F Last Admin: 09/24/17 04:29 Dose: 650 mg Al Hydrox/Mg Hydrox/Simethicone (Maalox Plus 30 Ml) 30 ml PO Q4 PRN PRN Reason: Indigestion / Heartburn Last Admin: 09/25/17 20:26 Dose: 30 ml Albuterol/Ipratropium (Duoneb 3 Mg/0.5 Mg (3 Ml) Ud) 3 ml INH RQ6 PRN PRN Reason: Wheezing Last Admin: 09/27/17 07:32 Dose: 3 ml Alprazolam (Xanax) 1 mg PO HS PRN PRN Reason: Insomnia Last Admin: 09/27/17 22:50 Dose: 1 mg Amlodipine Besylate (Norvasc) 10 mg PO DAILY [facility] Last Admin: 09/28/17 09:18 Dose: 10 mg Budesonide (Pulmicort Respules) 0.5 mg IH RBID [facility] Last Admin: 09/28/17 07:03 Dose: Not Given Glipizide (Glucotrol Xl) 5 mg PO BRK [facility] Last Admin: 09/28/17 09:18 Dose: 5 mg Ciprofloxacin (Cipro 400mg/200ml Dsw) 400 mg in 200 mls @ 200 mls/hr IVPB Q12 [place] PRN Reason: Protocol Last Admin: 09/28/17 09:17 Dose: 200 mls/hr Ibuprofen (Motrin Tab) 400 mg PO Q6 PRN PRN Reason: Temperature Lisinopril (Zestril) 40 mg PO DAILY [facility] Last Admin: 09/28/17 09:19 Dose: 40 mg Metoprolol Succinate (Toprol Xl) 100 mg PO DAILY [facility] Last Admin: 09/28/17 09:18 Dose: 100 mg Pantoprazole Sodium (Protonix Ec Tab) 40 mg PO DAILY [facility] Last Admin: 09/28/17 09:18 Dose: 40 mg - Labs Labs: 09/25/17 05:55 09/25/17 05:55 PT 12.2 Seconds (9.8-13.1) 09/22/17 19:05 INR 1.1 (0.9-1.2) 09/22/17 19:05 APTT 29.3 Seconds (25.6-37.1) 09/22/17 19:05 Assessment and Plan (1) Pyelonephritis Status: Acute (2) DM type 2 (diabetes mellitus, type 2) Status: Chronic (3) History of penile implant Status: Chronic
[2017-09-28 12:19] LABS: HEMOGLOBIN 13.4 g/dL (12.0-18.0); MEAN CELL VOLUME 88.5 fl (80.0-94.0); MEAN CORPUSCULAR HEMOGLOBIN 30.3 pg (27.0-31.0); MEAN CORPUSCULAR HGB CONC 34.3 g/dL (33.0-37.0); RBC 4.41 Mil/uL (4.40-5.90); RED CELL DISTRIBUTION WIDTH 13.6 % (11.5-14.5); WHITE BLOOD COUNT 10.2 K/uL (4.8-10.8)
[2017-09-28 12:28] LABS: BLOOD UREA NITROGEN 14 mg/dl (9-20); CALCIUM 9.2 mg/dL (8.4-10.2); GFR NON-AFRICAN AMERICAN > 60
--- NOTE | 2017-09-28 14:42 | CP.PCM.DIS ---
Provider - Provider Date of Admission: 09/22/17 20:07 Attending physician: Virgilio Cotton MD Consults: ID consult, Dr. Morris Urology consult, Dr. Foster Time Spent in preparation of Discharge (in minutes): 35 Diagnosis - Discharge Diagnosis (1) Pyelonephritis Status: Acute Comment: improving, afebrile x 4 days. Leukocytosis resolved. (2) Left flank tenderness Status: Acute (3) History of penile implant Status: Chronic (4) DM type 2 (diabetes mellitus, type 2) Status: Chronic (5) Chronic back pain Status: Chronic Hospital Course - Lab Results Lab Results: Micro Results 09/24/17 05:30 Blood Blood Culture - Preliminary NO GROWTH AFTER 4 DAYS 09/22/17 19:40 Blood Blood Culture - Final NO GROWTH AFTER 5 DAYS 09/22/17 19:40 Blood Gram Stain - Final TEST NOT PERFORMED 09/22/17 19:05 Blood Blood Culture - Final NO GROWTH AFTER 5 DAYS 09/22/17 19:05 Blood Gram Stain - Final TEST NOT PERFORMED 09/22/17 19:40 Urine Urine Culture - Final Klebsiella Pneumoniae Ssp Pneu Most Recent Lab Values WBC 10.2 K/uL (4.8-10.8) 09/28/17 12:15 RBC 4.41 Mil/uL (4.40-5.90) 09/28/17 12:15 Hgb 13.4 g/dL (12.0-18.0) 09/28/17 12:15 Hct 39.0 % (35.0-51.0) 09/28/17 12:15 MCV 88.5 fl (80.0-94.0) 09/28/17 12:15 MCH 30.3 pg (27.0-31.0) 09/28/17 12:15 MCHC 34.3 g/dL (33.0-37.0) 09/28/17 12:15 RDW 13.6 % (11.5-14.5) 09/28/17 12:15 Plt Count 243 K/uL (130-400) D 09/28/17 12:15 MPV 9.9 fl (7.2-11.7) 09/23/17 05:55 Neut % (Auto) 80.5 % (50.0-75.0) H 09/23/17 05:55 Lymph % (Auto) 8.3 % (20.0-40.0) L 09/23/17 05:55 [place] % (Auto) 10.9 % (0.0-10.0) H 09/23/17 05:55 Eos % (Auto) 0.0 % (0.0-4.0) 09/23/17 05:55 Baso % (Auto) 0.3 % (0.0-2.0) 09/23/17 05:55 Neut # (Auto) 16.9 K/uL (1.8-7.0) H 09/23/17 05:55 Lymph # (Auto) 1.7 K/uL (1.0-4.3) 09/23/17 05:55 [place] # (Auto) 2.3 K/uL (0.0-0.8) H 09/23/17 05:55 Eos # (Auto) 0.0 K/uL (0.0-0.7) 09/23/17 05:55 Baso # (Auto) 0.1 K/uL (0.0-0.2) 09/23/17 05:55 Neutrophils % (Manual) 77 % (42-75) H 09/23/17 05:55 Band Neutrophils % 4 % (0-2) H 09/23/17 05:55 Lymphocytes % (Manual) 9 % (20-50) L 09/23/17 05:55 Reactive Lymphs % 1 % (0-0) H 09/23/17 05:55 Monocytes % (Manual) 9 % (0-10) 09/23/17 05:55 Platelet Estimate Normal (NORMAL) 09/23/17 05:55 RBC Morphology Normal (NORMAL) 09/23/17 05:55 ESR 66 mm/hr (0-20) H 09/24/17 05:30 PT 12.2 Seconds (9.8-13.1) 09/22/17 19:05 INR 1.1 (0.9-1.2) 09/22/17 19:05 APTT 29.3 Seconds (25.6-37.1) 09/22/17 19:05 pO2 30 mm/Hg (30-55) 09/22/17 19:03 VBG pH 7.44 (7.32-7.43) H 09/22/17 19:03 VBG pCO2 40 mmHg (40-60) 09/22/17 19:03 VBG HCO3 26.2 mmol/L 09/22/17 19:03 VBG Total CO2 28.4 mmol/L (22-28) H 09/22/17 19:03 VBG O2 Sat (Calc) 69.2 % (40-65) H 09/22/17 19:03 VBG Base Excess 2.8 mmol/L (0.0-2.0) H 09/22/17 19:03 VBG Potassium 3.8 mmol/L (3.6-5.2) 09/22/17 19:03 Sodium 131.0 mmol/L (132-148) L 09/22/17 19:03 Chloride 96.0 mmol/L (98-107) L 09/22/17 19:03 Glucose 174 mg/dL (75-110) H 09/22/17 19:03 Lactate 1.4 mmol/L (0.7-2.1) 09/22/17 19:03 FiO2 21.0 % 09/22/17 19:03 Sodium 137 mmol/l (132-148) 09/28/17 12:15 Potassium 4.7 MMOL/L (3.6-5.0) 09/28/17 12:15 Chloride 100 mmol/L (98-107) 09/28/17 12:15 Carbon Dioxide 21 mmol/L (22-30) L 09/28/17 12:15 Anion Gap 21 (10-20) H 09/28/17 12:15 BUN 14 mg/dl (9-20) 09/28/17 12:15 Creatinine 0.8 mg/dl (0.8-1.5) 09/28/17 12:15 Est GFR ( Amer) > 60 09/28/17 12:15 Est GFR (Non-Af Amer) > 60 09/28/17 12:15 POC Glucose (mg/dL) 273 mg/dL (65-110) H 09/28/17 11:54 Random Glucose 305 mg/dL (75-110) H 09/28/17 12:15 Hemoglobin A1c 8.0 % (4.2-6.5) H 09/23/17 05:55 Calcium 9.2 mg/dL (8.4-10.2) 09/28/17 12:15 Phosphorus 2.9 mg/dl (2.5-4.5) 09/22/17 19:05 Magnesium 1.4 MG/DL (1.6-2.3) L 09/22/17 19:05 Total Bilirubin 1.3 mg/dl (0.2-1.3) 09/23/17 05:55 AST 33 U/L (17-59) 09/23/17 05:55 ALT 46 U/L (21-72) 09/23/17 05:55 Alkaline Phosphatase 100 U/L (38-126) 09/23/17 05:55 Troponin I < 0.0120 ng/mL (0.00-0.120) 09/22/17 19:05 Total Protein 6.8 G/DL (6.3-8.2) 09/23/17 05:55 Albumin 3.9 g/dL (3.5-5.0) 09/23/17 05:55 Globulin 2.9 gm/dL (2.2-3.9) 09/23/17 05:55 Albumin/Globulin Ratio 1.4 (1.0-2.1) 09/23/17 05:55 Triglycerides 127 mg/DL (0-149) 09/23/17 05:55 Cholesterol 139 mg/dL (0-199) 09/23/17 05:55 LDL Cholesterol Direct 55 mg/dL (0-129) 09/23/17 05:55 HDL Cholesterol 38 MG/DL (30-70) 09/23/17 05:55 Prostate Specific Ag 28.3 ng/ML (0.00-4.0) H 09/24/17 05:30 Thyroxine (T4) 7.27 ug/dl (5.5-11.0) 09/23/17 05:55 TSH 3rd Generation 0.67 mIU/ML (0.46-4.68) 09/23/17 05:55 Venous Blood Potassium 3.8 mmol/L (3.6-5.2) 09/22/17 19:03 Urine Color Straw (YELLOW) 09/22/17 19:40 Urine Clarity Slighty-cloudy (Clear) 09/22/17 19:40 Urine pH 7.0 (5.0-8.0) 09/22/17 19:40 Ur Specific [place] < 1.005 (1.003-1.030) 09/22/17 19:40 Urine Protein Negative mg/dL (NEGATIVE) 09/22/17 19:40 Urine Glucose (UA) Neg mg/dL (Normal) 09/22/17 19:40 Urine Ketones Negative mg/dL (NEGATIVE) 09/22/17 19:40 Urine Blood Small (NEGATIVE) 09/22/17 19:40 Urine Nitrate Negative (NEGATIVE) 09/22/17 19:40 Urine Bilirubin Negative (NEGATIVE) 09/22/17 19:40 Urine Urobilinogen 0.2-1.0 mg/dL (0.2-1.0) 09/22/17 19:40 Ur Leukocyte Esterase Large [place]/uL (Negative) 09/22/17 19:40 Urine RBC (Auto) 3 /hpf (0-3) 09/22/17 19:40 Urine Microscopic WBC 108 /hpf (0-5) H 09/22/17 19:40 Urine Bacteria Rare (<OCC) 09/22/17 19:40 Rheumatoid Arth Interp Negative (NEGATIVE) 09/24/17 05:30 C. difficile Ag & Toxin Negative (NEGATIVE) 09/26/17 10:25 - Hospital Course Hospital Course: 62 y/o male with PMHx of HTN, DM type 2, Chronic back pain, Penile implant presents to Ed complaining of left sided flank pain, associated with dysuria, vesical tenesmus, and fevers for one day admitted for Pyelonephritis. Urine culture was positive for klebsiella Pneumoniae SSP. On admission patient was managed with empiric IV antibiotic as per ID recommendations, and then switched to specific abx based on urine culture C&S. Blood Cx negative for 5 days, and repeated Bcx negative. Leukocytosis resolved. Urology was consulted due to h/o penile implant and recommended to treat UTI and repeat UA. Noted uncontrolled DM type 2, but pt states he is not adherent to diet and PO Rx. metformin was decreased to 500 mg BI, due to diarrheas, and Glimepiride was increased to 4 mg. Will f/u as outpatient, and adjust regimen as needed. Seen and examined today, stable to be DC home with outpatient f/u. DC on Cipro BID PO x 14 days as per ID recommendations. - Date & Time of H&P Date of H&P: 09/23/17 Time of H&P: 10:40 Discharge Exam - Head Exam Head Exam: NORMAL INSPECTION - Eye Exam Eye Exam: Normal appearance - ENT Exam ENT Exam: Mucous Membranes Moist - Respiratory Exam Respiratory Exam: Clear to PA & Lateral, NORMAL BREATHING PATTERN. absent: Rales, Rhonchi, Wheezes, Respiratory Distress, Stridor - Cardiovascular Exam Cardiovascular Exam: REGULAR RHYTHM, +S1, +S2 - GI/Abdominal Exam GI & Abdominal Exam: Normal Bowel Sounds, Soft. absent: Distended, Guarding, Rebound, Rigid - Extremities Exam Extremities exam: normal inspection - Back Exam Back exam: NORMAL INSPECTION. absent: CVA tenderness (L), CVA tenderness (R) - Neurological Exam Neurological exam: Alert, Oriented x3 - Psychiatric Exam Psychiatric exam: Normal Affect, Normal Mood - Skin Skin Exam: Dry, Intact, Normal Color Discharge Plan - Discharge Medications Prescriptions: Lactobacillus Acidophilus [Bacid Acidophilus] 1 cap PO DAILY #30 cap Ciprofloxacin [Cipro] 500 mg PO BID #28 tab Budesonide [Pulmicort Respules] 0.5 mg IH RBID #1 neb - Follow Up Plan Condition: STABLE Disposition: HOME/ ROUTINE Patient education suggested?: Yes Instructions: Urinary Tract Infection, Adult (DC) Additional Instructions: Complete all antibiotics. follow up with primary MD 1 week Referrals: Blayne Foster MD [Staff Provider] - Federico Dumont MD [Medical Doctor] - Omaira Khan MD [Family Provider] -
--- NOTE | 2017-09-30 12:24 | PQF ---
PROVIDER RESPONSE TEXT: Patient was diagnosed with sepsis - Leukocytosis, fever , tachycardia and identifiable source of infe ction REVIEWER QUERY TEXT: Present On Admission It is unclear whether a diagnosis of SEPSIS was present on admission. Your help is needed. Please c larify the POA status Such as: -- Present on admission -- Not present on admission The patient's Clinical Indicators include: Patient presents to the ER with back pain, fever, dysuria. Renal US + cysts. URINE CS: Klebsiella Pne umoniae Ssp Pneu. BLOOD CS no growth. WBC 18.6 L shift --> 23.7 and 4% BANDS. Lactate 1.4. TEMP: 103, 103, 100.3, 99.1, 98.9, 100.8 HR: 118, 99, 121, 121, BP: 130/79, 126/76, 135/76 R: 18, 17, 20, 20 Medication: IVAB Query created by: Anju Taylor on 09/28/2017 2:25 PM Electronically signed by: Dat Morris MD 09/30/2017 12:21 PM
--- NOTE | 2017-10-05 11:11 | PQF ---
PROVIDER RESPONSE TEXT: Present on admission as per ER notes thanks REVIEWER QUERY TEXT: Present On Admission It is unclear whether Sepsis was present on admission or Not present on admission.. Your help is ne eded. Please clarify Sepsis was: -- Present on admission OR -- Not present on admission . Your previous response : "Patient was diagnosed with sepsis - Leukocytosis, fever , tachycardia and identifiable source of infection". The patient's Clinical Indicators include: Patient presents to the ER with back pain, fever, dysuria. Renal US + cysts. URINE CS: Klebsiella Pne umoniae Ssp Pneu. BLOOD CS no growth. WBC 18.6 L shift --> 23.7 and 4% BANDS. Lactate 1.4. TEMP: 103, 103, 100.3, 99.1, 98.9, 100.8 HR: 118, 99, 121, 121, BP: 130/79, 126/76, 135/76 R: 18, 17, 20, 20 Medication: IVAB Query created by: Anju Taylor on 09/30/2017 2:11 PM Electronically signed by: Dat Morris MD 10/05/2017 11:09 AM
== END 2017-09-28 14:17 | disposition home or self-care (01) | DRG 901 ==
LOC: H.ER 18:04 → H.ERHOLD 20:07 → H.MEDSURG1 22:53
PROVIDERS: ADMIT Internal Medicine Pulmonary Disease; ATTEND Internal Medicine Pulmonary Disease
DX: A41.9 Sepsis, unspecified organism (principal); N10 Acute pyelonephritis; E11.22 Type 2 diabetes mellitus with diabetic chronic kidney disease; B96.1 Klebsiella pneumoniae [K. pneumoniae] as the cause of diseases classified elsewhere; E11.65 Type 2 diabetes mellitus with hyperglycemia; K52.1 Toxic gastroenteritis and colitis; N18.9 Chronic kidney disease, unspecified; I12.9 Hypertensive chronic kidney disease with stage 1 through stage 4 chronic kidney disease, or unspecified chronic kidney disease; R31.29 Other microscopic hematuria; E03.9 Hypothyroidism, unspecified; E78.00 Pure hypercholesterolemia, unspecified; E78.5 Hyperlipidemia, unspecified; G89.29 Other chronic pain; N52.9 Male erectile dysfunction, unspecified; Z86.718 Personal history of other venous thrombosis and embolism; F32.9 Major depressive disorder, single episode, unspecified; F41.9 Anxiety disorder, unspecified; M19.90 Unspecified osteoarthritis, unspecified site; J45.909 Unspecified asthma, uncomplicated; N28.1 Cyst of kidney, acquired; Z91.11 Patient's noncompliance with dietary regimen; Z91.14 Patient's other noncompliance with medication regimen; T38.3X5A Adverse effect of insulin and oral hypoglycemic [antidiabetic] drugs, initial encounter; M48.00 Spinal stenosis, site unspecified

== ENCOUNTER 2018-03-15 09:33 | Emergency (ER) | payer MEDICAID ==
[2018-03-15 09:34] VITALS: BMI 28.5
[2018-03-15] MEDS ORDERED: Oxycodone/Acetaminophen 5/325 mg Tab PO ONE (10:15)
[2018-03-15 10:17] VITALS: PULSE 81; RESP 16; O2SAT 97
--- NOTE | 2018-03-15 10:18 | ED PDOC ---
Upper Extremity Pain/Injury Time Seen by Provider: 03/15/18 10:07 Chief Complaint (Nursing): Upper Extremity Problem/Injury Chief Complaint (Provider): Left arm pain after fall History Per: Patient, Family () Additional Complaint(s): 62 y/o M with hx of Left arm tenosynovitis, PUD with H. Pylori, DM and HTN who presents after fall onto left arm yesterday. Patient states that he tripped going up the stairs last night in his home and fell onto outstretched left arm. He heard a crack and had acute pain but did not want to come to ER because of how busy it is at night. He has been using home rememdies like turmeric and Janes Hannon but has not taken any other medications. He avoids Ibuprofen due to hx of PUD in the past. Denies numbness or tingling in Left hand, further denies elbow, wrist or neck pain. Past Medical History - Medical History PMH: Anxiety, Arthritis, Asthma, Depression, Diabetes, Deep Vein Thrombosis (To the RLE, not on blood thinners), HTN, Hypercholesterolemia, Hypothyroidism, Kidney Stones, Chronic Kidney Disease, Chronic Pain (back ) - Surgical History Surgical History: Appendectomy, Endoscopy - Family History Family History: States: Unknown Family Hx - Immunization History Hx Tetanus Toxoid Vaccination: No Hx Influenza Vaccination: Yes Hx Pneumococcal Vaccination: No - Home Medications Home Medications: Ambulatory Orders Medication Instructions Recorded ALPRAZolam [Xanax] 1 mg PO HS 09/22/17 Amlodipine Besylate/Benazepril 1 cap PO DAILY 09/22/17 [Lotrel 10-40 mg Capsule] Albuterol/Ipratropium [Duoneb 3 3 ml INH RQ6 PRN [facility] 09/28/17 mg/0.5 mg (3 ml) UD] Budesonide [Pulmicort Respules] 0.5 mg IH RBID #1 neb 09/28/17 Glimepiride 4 mg PO DAILY #30 09/28/17 Ibuprofen [Motrin Tab] 400 mg PO Q6 PRN tab 09/28/17 Lactobacillus Acidophilus [Bacid 1 cap PO DAILY #30 cap 09/28/17 Acidophilus] MetFORMIN [glucoPHAGE] 500 mg PO BID #60 09/28/17 Metoprolol Succinate XL [Toprol XL] 100 mg PO DAILY tab 09/28/17 Amoxicillin/Clavulanate [Augmentin 1 tab PO BID #14 tab 02/19/18 875 MG-125 MG] Ibuprofen [Motrin] 600 mg PO Q6 #30 tab 02/19/18 traZODone [Desyrel] 100 mg PO DAILY 02/19/18 Naproxen 500 mg PO BID PRN 7 Days tab 03/15/18 - Allergies Allergies/Adverse Reactions: Allergies Allergy/AdvReac Type Severity Reaction Status Date / Time No Known Allergies Allergy Verified 03/15/18 10:04 Physical Exam - Reviewed Nursing Documentation Reviewed: Yes - Physical Exam Appears: Positive for: Uncomfortable Neck: Positive for: Painless ROM Cardiovascular/Chest: Positive for: Regular Rate, Rhythm Respiratory: Positive for: Normal Breath Sounds Pulses-Radial (L): 2+ Extremity: Positive for: Capillary Refill (< 2 sec), Other (point tenderness Left humerus. No swelling or deformity noted. ). Negative for: Normal ROM (limited ROM with flexion, extension and abduction at Left shoulder. Normal ROM with flexion and extension of Left elbow and wrist. ), Deformity Neurologic/Psych: Positive for: Alert, Oriented. Negative for: Motor/Sensory Deficits Medical Decision Making Medical Decision Making: Left humerus x-ray Left shoulder x-ray Percocet PO x 1 Left arm x-ray: no acute pathology noted Shoulder x-ray: no acute pathology noted Patient stable for d/c home with referral to orthopedics for continued shoulder/arm pain. Disposition - Clinical Impression Clinical Impression: Shoulder injury - Patient ED Disposition Is Patient to be Admitted: No Counseled Patient/Family Regarding: Studies Performed, Diagnosis, Need For Followup - Disposition Referrals: Zana Nunn MD [Medical Doctor] - Disposition: Routine/Home Disposition Time: 17:10 Condition: STABLE Additional Instructions: F/u with orthopedist as soon as possible for further evaluation of left shoulder pain. Take Naproxen or Tylenol as needed for pain. Prescriptions: Naproxen 500 mg PO BID PRN 7 Days tab PRN Reason: Pain, Moderate (4-7) Forms: [facility] (Togolese) Print Language: SETSWANA
[2018-03-15] MEDS ORDERED: Oxycodone/Acetaminophen 5/325 mg Tab ONE ×2 (10:21→10:25)
[2018-03-15] MEDS ORDERED: Naproxen 500 MG TAB PO STA (13:00)
[2018-03-15] MEDS ORDERED: Naproxen 500 MG TAB PO ONE (13:16)
--- NOTE | 2018-03-15 13:33 | RAD ---
PROCEDURE: Radiographs of the left humerus. HISTORY: fall onto Left arm with acute pain COMPARISON: March 15, 2018 left shoulder reported separately. FINDINGS: BONES: Normal. No fracture or focal lesion. SOFT TISSUES: Normal. OTHER FINDINGS: None. IMPRESSION: No significant or acute findings to account for/ related to the clinical presentation.
--- NOTE | 2018-03-15 13:33 | RAD ---
Date of service: 03/15/2018 PROCEDURE: Radiographs of the Left Shoulder HISTORY: fall onto left arm, acute pain COMPARISON: No prior. FINDINGS: BONES: Normal. No fracture. JOINTS: Normal. Glenohumeral and acromioclavicular joints preserved. No osteoarthritis. SOFT TISSUES: Normal. OTHER FINDINGS: None. IMPRESSION: No acute findings related to/ accounting for the clinical presentation.
[2018-03-15 17:11] VITALS: BP 130/74
== END 2018-03-15 12:56 | disposition home or self-care (01) ==
LOC: H.ER 09:33
DX: S49.92XA Unspecified injury of left shoulder and upper arm, initial encounter (principal); W01.0XXA Fall on same level from slipping, tripping and stumbling without subsequent striking against object, initial encounter; E11.9 Type 2 diabetes mellitus without complications; Z86.59 Personal history of other mental and behavioral disorders; I12.9 Hypertensive chronic kidney disease with stage 1 through stage 4 chronic kidney disease, or unspecified chronic kidney disease; Z79.84 Long term (current) use of oral hypoglycemic drugs; Z86.718 Personal history of other venous thrombosis and embolism; J45.909 Unspecified asthma, uncomplicated